=== PATIENT | male | born 1960 | race Caucasian/White ===

== ENCOUNTER 2017-11-07 14:51 | Inpatient (IN) | payer OTHER, SELFPAY ==
[~2017-11-07] VITALS: Ht 170.2 cm; Wt 50.0 kg
[~2017-11-07 14:51] MED LIST: HYDACE5 PO; SULTRIDS PO
[2017-11-07 15:37] LABS: Hemoglobin 15.6 g/dL (13.5-17.5); Mean Corpuscular HGB 29.9 pg (26.0-34.0); Mean Corpuscular HGB Conc 34.7 g/dL (31.5-36.5); Mean Corpuscular Volume 86 fL (80-100); Mean Platelet Volume 10.2 fL (9.1-12.4); Platelet Count 224 K/mm3 (150-400); RDW Coefficient Variation 14.8 % (11.7-14.2); RDW Standard Deviation 47.2 fL (35.1-46.3); Red Blood Cell Count 5.22 M/mm3 (4.30-5.90); White Blood Cell Count 13.65 K/mm3 (4.00-11.30)
[2017-11-07 15:55] LABS: Alanine Aminotransfer (ALT/SGP 9 U/L (12-78); Albumin, Blood 1.6 g/dL (3.4-5.0); Albumin/Globulin Ratio 0.3 (0.8-1.8); Alk Phos 80 U/L (50-136); Anion Gap 10 mmol/L (6-16); Aspartate Aminotrans (AST/SGOT 28 U/L (12-37); Blood Urea Nitrogen 43 mg/dL (8-24); Bun/Creatinine Ratio 54.6 (12.0-20.0); CO2, Blood 27 mmol/L (21-32); Calcium, Blood 8.7 mg/dL (8.5-10.1); Chloride, Blood 95 mmol/L (98-108); Creatinine, Blood 0.79 mg/dL (0.60-1.20); Globulin, Blood 5.6 g/dL (2.2-4.0); Glomerular Filtration Rate >60 (60-); Glucose, Blood 74 mg/dL (70-99); Potassium, Blood 3.7 mmol/L (3.5-5.5); Sodium, Blood 132 mmol/L (136-145); Total Protein, Blood 7.2 g/dL (6.4-8.2); Troponin I <0.015 ng/mL (0.000-0.040)
[2017-11-07 16:08] LABS: BAND PERCENT MAN 2 % (0-8); BASOPHILS PERCENT MAN 0 % (0-2); EOSINOPHILS PERCENT MAN 0 % (0-6); LYMPHOCYTES PERCENT MAN 3 % (21-46); METAMYELOCYTE ABSOLUTE MAN 0.27 K/mm3 (0.00-0.00); METAMYELOCYTE PERCENT MAN 2 % (0-0); MONOCYTES ABSOLUTE MAN 0.27 K/mm3 (0.16-1.47); MONOCYTES PERCENT MAN 2 % (4-13); NEUTROPHILS ABSOLUTE MAN 12.69 K/mm3 (1.96-9.15); SEG NEUTROPHILS PERCENT MAN 91 % (41-73); TOTAL CELLS COUNTED 100
[2017-11-08 06:09] LABS: BASOPHILS ABSOLUTE AUTO 0.01 K/mm3 (0.00-0.23); BASOPHILS PERCENT AUTO 0 % (0-2); EOSINOPHILS ABSOLUTE AUTO 0.01 K/mm3 (0.00-0.68); EOSINOPHILS PERCENT AUTO 0 % (0-6); Hematocrit 38.5 % (37.0-53.0); Hemoglobin 13.2 g/dL (13.5-17.5); IMMATURE GRAN ABSOLUTE AUTO 0.08 K/mm3 (0.00-0.10); IMMATURE GRAN PERCENT AUTO 1 % (0-1); LYMPHOCYTES ABSOLUTE AUTO 0.63 K/mm3 (0.84-5.20); LYMPHOCYTES PERCENT AUTO 7 % (21-46); MONOCYTES ABSOLUTE AUTO 0.24 K/mm3 (0.16-1.47); MONOCYTES PERCENT AUTO 3 % (4-13); Mean Corpuscular HGB 29.5 pg (26.0-34.0); Mean Corpuscular HGB Conc 34.3 g/dL (31.5-36.5); Mean Corpuscular Volume 86 fL (80-100); Mean Platelet Volume 10.7 fL (9.1-12.4); NEUTROPHILS ABSOLUTE AUTO 8.09 K/mm3 (1.96-9.15); NEUTROPHILS PERCENT AUTO 89 % (41-73); NRBC ABSOLUTE 0.02 K/mm3 (0.00-0.02); NRBC Auto 0.2 /100 WBC (0.0-0.2); Platelet Count 182 K/mm3 (150-400); RDW Coefficient Variation 14.9 % (11.7-14.2); RDW Standard Deviation 47.1 fL (35.1-46.3); Red Blood Cell Count 4.47 M/mm3 (4.30-5.90); White Blood Cell Count 9.06 K/mm3 (4.00-11.30)
[2017-11-08 06:21] LABS: Alanine Aminotransfer (ALT/SGP 9 U/L (12-78); Albumin, Blood 1.2 g/dL (3.4-5.0); Albumin/Globulin Ratio 0.3 (0.8-1.8); Alk Phos 76 U/L (50-136); Anion Gap 8 mmol/L (6-16); Aspartate Aminotrans (AST/SGOT 34 U/L (12-37); Bilirubin, Total 0.7 mg/dL (0.1-1.0); Blood Urea Nitrogen 29 mg/dL (8-24); Bun/Creatinine Ratio 43.2 (12.0-20.0); CO2, Blood 26 mmol/L (21-32); Chloride, Blood 100 mmol/L (98-108); Creatinine, Blood 0.67 mg/dL (0.60-1.20); Globulin, Blood 4.4 g/dL (2.2-4.0); Glomerular Filtration Rate >60 (60-); Glucose, Blood 94 mg/dL (70-99); Potassium, Blood 3.7 mmol/L (3.5-5.5); Sodium, Blood 134 mmol/L (136-145); Total Protein, Blood 5.6 g/dL (6.4-8.2)
[2017-11-09 04:25] LABS: Albumin, Blood 1.2 g/dL (3.4-5.0); Anion Gap 9 mmol/L (6-16); Blood Urea Nitrogen 22 mg/dL (8-24); Bun/Creatinine Ratio 36.1 (12.0-20.0); CO2, Blood 27 mmol/L (21-32); Calcium, Blood 7.9 mg/dL (8.5-10.1); Chloride, Blood 102 mmol/L (98-108); Creatinine, Blood 0.61 mg/dL (0.60-1.20); Glomerular Filtration Rate >60 (60-); Glucose, Blood 91 mg/dL (70-99); Magnesium, Blood 1.5 mg/dL (1.6-2.4); Phosphorus, Blood 3.7 mg/dL (2.5-4.9); Potassium, Blood 3.4 mmol/L (3.5-5.5); Sodium, Blood 138 mmol/L (136-145)
[2017-11-10 06:27] LABS: Anion Gap 4 mmol/L (6-16); Blood Urea Nitrogen 19 mg/dL (8-24); Bun/Creatinine Ratio 33.1 (12.0-20.0); CO2, Blood 30 mmol/L (21-32); Calcium, Blood 7.9 mg/dL (8.5-10.1); Chloride, Blood 104 mmol/L (98-108); Creatinine, Blood 0.57 mg/dL (0.60-1.20); Glomerular Filtration Rate >60 (60-); Glucose, Blood 89 mg/dL (70-99); Magnesium, Blood 1.6 mg/dL (1.6-2.4); Sodium, Blood 138 mmol/L (136-145)
[2017-11-11] MEDS ORDERED: ACET325 PO (10:43)
[2017-11-11] MEDS ORDERED: ASPI81CH PO (10:43)
[2017-11-11] MEDS ORDERED: AZIT500 PO (10:44)
[2017-11-11] MEDS ORDERED: CEPACOL SORE T1 EACH PO (10:44)
[2017-11-11] MEDS ORDERED: GUAI600T33 PO (10:45)
[2017-11-11] MEDS ORDERED: DULERA 200 MCG/13 GM INH (10:46)
[2017-11-11] MEDS ORDERED: CEFP200 PO (10:47)
[2017-11-11] MEDS ORDERED: ALBU90OI INH (10:47)
== END 2017-11-11 14:01 | disposition home or self-care (01) | DRG 871 ==
LOC: ER 14:51 → MEDS 17:24
PROVIDERS: Emergency Medicine; Family Medicine; Internal Medicine
DX: A41.9 Sepsis, unspecified organism (principal); J18.9 Pneumonia, unspecified organism; J44.0 Chronic obstructive pulmonary disease with (acute) lower respiratory infection; E88.09 Other disorders of plasma-protein metabolism, not elsewhere classified; H91.90 Unspecified hearing loss, unspecified ear; I48.0 Paroxysmal atrial fibrillation; F10.20 Alcohol dependence, uncomplicated; F17.200 Nicotine dependence, unspecified, uncomplicated; Z71.6 Tobacco abuse counseling
CPT/HCPCS: 36415; 71046; 71250; 80048; 80053; 80069; 83605; 83735; 84484; 85025; 87040; 87070; 87205; 93005; 93010; 93306; 94640; 94760; 94761; 96365; 99285; J0456; J1644; J2543; J3370; J3411; J3475; J7030; J7042; J7050

== ENCOUNTER 2017-12-01 12:07 | Emergency (ER) | payer OTHER, SELFPAY ==
[~2017-12-01] VITALS: Ht 160 cm; Wt 49.9 kg
[~2017-12-01 12:07] MED LIST changes: +ACET325 PO; +ALBU90OI INH; +ASPI81CH PO; +AZIT500 PO; +CEFP200 PO; +CEPACOL SORE T1 EACH PO; +DULERA 200 MCG/13 GM INH; +GUAI600T33 PO
[2017-12-01 12:47] LABS: BASOPHILS ABSOLUTE AUTO 0.12 K/mm3 (0.00-0.23); BASOPHILS PERCENT AUTO 2 % (0-2); EOSINOPHILS ABSOLUTE AUTO 0.13 K/mm3 (0.00-0.68); EOSINOPHILS PERCENT AUTO 2 % (0-6); Hematocrit 44.3 % (37.0-53.0); Hemoglobin 14.1 g/dL (13.5-17.5); IMMATURE GRAN ABSOLUTE AUTO 0.01 K/mm3 (0.00-0.10); IMMATURE GRAN PERCENT AUTO 0 % (0-1); LYMPHOCYTES PERCENT AUTO 36 % (21-46); MONOCYTES PERCENT AUTO 15 % (4-13); Mean Corpuscular HGB 28.8 pg (26.0-34.0); Mean Corpuscular HGB Conc 31.8 g/dL (31.5-36.5); Mean Corpuscular Volume 90 fL (80-100); Mean Platelet Volume 9.6 fL (9.1-12.4); NEUTROPHILS ABSOLUTE AUTO 2.63 K/mm3 (1.96-9.15); NEUTROPHILS PERCENT AUTO 45 % (41-73); Platelet Count 336 K/mm3 (150-400); RDW Standard Deviation 53.7 fL (35.1-46.3); White Blood Cell Count 5.89 K/mm3 (4.00-11.30)
[2017-12-01 13:07] LABS: Alanine Aminotransfer (ALT/SGP 18 U/L (12-78); Albumin/Globulin Ratio 0.6 (0.8-1.8); Alk Phos 104 U/L (50-136); Anion Gap 6 mmol/L (6-16); Aspartate Aminotrans (AST/SGOT 26 U/L (12-37); Bilirubin, Total 0.2 mg/dL (0.1-1.0); Blood Urea Nitrogen 8 mg/dL (8-24); Bun/Creatinine Ratio 14.1 (12.0-20.0); CO2, Blood 29 mmol/L (21-32); Calcium, Blood 8.7 mg/dL (8.5-10.1); Chloride, Blood 103 mmol/L (98-108); Creatinine, Blood 0.57 mg/dL (0.60-1.20); Globulin, Blood 5.1 g/dL (2.2-4.0); Glomerular Filtration Rate >60 (60-); Glucose, Blood 91 mg/dL (70-99); Potassium, Blood 4.8 mmol/L (3.5-5.5); Sodium, Blood 138 mmol/L (136-145); Total Protein, Blood 8.1 g/dL (6.4-8.2); Troponin I <0.015 ng/mL (0.000-0.040)
[2017-12-01] MEDS ORDERED: Vibramycin100 MG PO (16:01)
== END 2017-12-01 17:15 | disposition home or self-care (01) ==
LOC: ER 12:07
PROVIDERS: Emergency Medicine
DX: J18.9 Pneumonia, unspecified organism (principal); Z79.2 Long term (current) use of antibiotics; J44.9 Chronic obstructive pulmonary disease, unspecified; F17.200 Nicotine dependence, unspecified, uncomplicated
CPT/HCPCS: 36415; 71046; 80053; 84484; 85025; 93005; 93010; 96361; 96374; 99283; J0696; J7030

== ENCOUNTER 2023-04-17 15:56 | Inpatient (IN) | payer OTHER ==
[~2023-04-17] VITALS: Ht 177.8 cm; Wt 54.7 kg
[~2023-04-17 15:56] MED LIST changes: +Vibramycin100 MG PO
[2023-04-17 16:56] LABS: BASOPHILS ABSOLUTE AUTO 0.07 K/mm3 (0.00-0.23); BASOPHILS PERCENT AUTO 1 % (0-2); EOSINOPHILS ABSOLUTE AUTO 0.01 K/mm3 (0.00-0.68); EOSINOPHILS PERCENT AUTO 0 % (0-6); Hematocrit 46.8 % (37.0-53.0); Hemoglobin 14.3 g/dL (13.5-17.5); IMMATURE GRAN ABSOLUTE AUTO 0.05 K/mm3 (0.00-0.10); IMMATURE GRAN PERCENT AUTO 0 % (0-1); LYMPHOCYTES ABSOLUTE AUTO 0.81 K/mm3 (0.84-5.20); LYMPHOCYTES PERCENT AUTO 7 % (21-46); MONOCYTES ABSOLUTE AUTO 1.45 K/mm3 (0.16-1.47); MONOCYTES PERCENT AUTO 12 % (4-13); Mean Corpuscular HGB Conc 30.6 g/dL (31.5-36.5); Mean Corpuscular Volume 85 fL (80-100); Mean Platelet Volume 11.1 fL (9.1-12.4); NEUTROPHILS ABSOLUTE AUTO 9.58 K/mm3 (1.96-9.15); NEUTROPHILS PERCENT AUTO 80 % (41-73); NRBC ABSOLUTE 0.04 K/mm3 (0.00-0.02); NRBC Auto 0.3 /100 WBC (0.0-0.2); Platelet Count 212 K/mm3 (150-400); RDW Coefficient Variation 16.1 % (11.7-14.2); RDW Standard Deviation 50.1 fL (35.1-46.3); Red Blood Cell Count 5.51 M/mm3 (4.30-5.90); White Blood Cell Count 11.97 K/mm3 (4.00-11.30)
[2023-04-17 17:22] LABS: Albumin, Blood 2.3 g/dL (3.4-5.0); Albumin/Globulin Ratio 0.5 (0.8-1.8); Bilirubin, Total 0.8 mg/dL (0.1-1.0); Bun/Creatinine Ratio 21.7 (12.0-20.0); Calcium, Blood 8.5 mg/dL (8.5-10.1); Creatinine, Blood 0.78 mg/dL (0.60-1.20); Globulin, Blood 4.8 g/dL (2.2-4.0); Potassium, Blood 4.5 mmol/L (3.5-5.5); Total Protein, Blood 7.1 g/dL (6.4-8.2)
[2023-04-17 21:21] VITALS: BP 129/80
[2023-04-18 03:52] VITALS: BP 108/66
[2023-04-18 05:25] LABS: BASOPHILS ABSOLUTE AUTO 0.09 K/mm3 (0.00-0.23); BASOPHILS PERCENT AUTO 1 % (0-2); EOSINOPHILS ABSOLUTE AUTO 0.07 K/mm3 (0.00-0.68); EOSINOPHILS PERCENT AUTO 1 % (0-6); Hematocrit 43.6 % (37.0-53.0); Hemoglobin 13.6 g/dL (13.5-17.5); IMMATURE GRAN ABSOLUTE AUTO 0.01 K/mm3 (0.00-0.10); IMMATURE GRAN PERCENT AUTO 0 % (0-1); LYMPHOCYTES ABSOLUTE AUTO 0.95 K/mm3 (0.84-5.20); LYMPHOCYTES PERCENT AUTO 12 % (21-46); MONOCYTES ABSOLUTE AUTO 1.36 K/mm3 (0.16-1.47); MONOCYTES PERCENT AUTO 18 % (4-13); Mean Corpuscular HGB 26.1 pg (26.0-34.0); Mean Corpuscular HGB Conc 31.2 g/dL (31.5-36.5); Mean Corpuscular Volume 84 fL (80-100); Mean Platelet Volume 10.7 fL (9.1-12.4); NEUTROPHILS ABSOLUTE AUTO 5.22 K/mm3 (1.96-9.15); NEUTROPHILS PERCENT AUTO 68 % (41-73); Platelet Count 171 K/mm3 (150-400); RDW Coefficient Variation 16.2 % (11.7-14.2); RDW Standard Deviation 49.1 fL (35.1-46.3); Red Blood Cell Count 5.21 M/mm3 (4.30-5.90)
[2023-04-18 05:58] LABS: Anion Gap 7 mmol/L (6-16); Blood Urea Nitrogen 15 mg/dL (8-24); Bun/Creatinine Ratio 17.4 (12.0-20.0); CHOL/HDL RATIO 3.4; CO2, Blood 31 mmol/L (21-32); Calcium, Blood 8.5 mg/dL (8.5-10.1); Chloride, Blood 104 mmol/L (98-108); Cholesterol 88 mg/dL (50-200); Creatinine, Blood 0.86 mg/dL (0.60-1.20); Glomerular Filtration Rate 98 (60-); Glucose, Blood 81 mg/dL (70-99); HDL Cholesterol 26 mg/dL (>39); Low Density Lipoprotein Chol 51 mg/dL (0-110); Potassium, Blood 4.1 mmol/L (3.5-5.5); Sodium, Blood 142 mmol/L (136-145); Triglycerides 55 mg/dL (30-160); Very Low Density Lipoprot Chol 11 mg/dL (6-32)
--- NOTE | 2023-04-18 06:18 | NUR ---
ADMITTED LAST NIGHT AO, SBA WITH WEAK GAIT. PLEASANT, DROWSY BUT AROUSABLE. PAINFUL BLE WHEN COMPRESSION STOCKINGS PLACED. COARSE LUNG SOUNDS ON R SIDE. NO REQUESTS FOR PRN MEDS. VSS ON 4L NC. SKIN CHECK WITH RM LECHUGA, BLE IS RED AND EDEMATOUS 2-3+, SCAR ON L UPPER BACK FROM LOBECTOMY, R FOOT CELLULITIS, PROTRUDING RECTUM. SLEPT MOST OF SHIFT. USES URINAL INDEPENDENT. TELE PLACED ST IN LOW 100'S.
[2023-04-18 07:25] VITALS: BP 119/89
[2023-04-18 16:07] VITALS: BP 103/70
--- NOTE | 2023-04-18 16:34 | NUR ---
SHIFT SUMMARY NO ACUTE CHANGES NOTED DURING SHIFT. PT ALERT AND ORIENTED, CALLS APPROPRIATELY. PT REMAINS ON 4L NC. IV LASIX CONTINEUD. NO C/O PAIN AT THIS TIME. WILL CONTINUE TO MONITOR. CALL LIGHT WITHIN REACH.
[2023-04-18 19:13] VITALS: BP 106/76
[2023-04-19 04:52] VITALS: BP 125/91
--- NOTE | 2023-04-19 05:13 | NUR ---
SUMMARY: PT A/OX4, IS INDEPENDENT IN ROOM AND SPECIFIES NEEDS. PO KEFLEX RECEIVED FOR RLE CELLULITIS. TRACE BLE EDEMA IS IMPROVING W/LASIX DIURESIS AND DEBRA HOSE ARE INTACT. HE'S NSR-S.TACH AT 90'S-100'S BPM ON TELEMETRY. PT REMAINS ON 4L O2 VIA NC W/SPO2 WNL BUT DOES STILL BECOME SOB W/EXERTION. LS COARSE W/WHEEZES AND RT PROVIDED NEBS FOR TOLERABLE RELIEF. OCCASSIONAL MOIST PRODUCTIVE COUGH NOTED AND PT RECEIVING MUCINEX PER EMAR. NO ACUTE CHANGES, VSS/AFEBRILE. WCTM AND REPORT TO DAY RN.
[2023-04-19 05:33] LABS: BASOPHILS ABSOLUTE AUTO 0.09 K/mm3 (0.00-0.23); BASOPHILS PERCENT AUTO 1 % (0-2); EOSINOPHILS ABSOLUTE AUTO 0.11 K/mm3 (0.00-0.68); EOSINOPHILS PERCENT AUTO 1 % (0-6); Hemoglobin 15.5 g/dL (13.5-17.5); IMMATURE GRAN ABSOLUTE AUTO 0.02 K/mm3 (0.00-0.10); IMMATURE GRAN PERCENT AUTO 0 % (0-1); LYMPHOCYTES ABSOLUTE AUTO 1.22 K/mm3 (0.84-5.20); LYMPHOCYTES PERCENT AUTO 14 % (21-46); MONOCYTES ABSOLUTE AUTO 0.93 K/mm3 (0.16-1.47); MONOCYTES PERCENT AUTO 11 % (4-13); Mean Corpuscular HGB 26.1 pg (26.0-34.0); Mean Corpuscular HGB Conc 30.4 g/dL (31.5-36.5); Mean Corpuscular Volume 86 fL (80-100); Mean Platelet Volume 11.1 fL (9.1-12.4); NEUTROPHILS ABSOLUTE AUTO 6.09 K/mm3 (1.96-9.15); NEUTROPHILS PERCENT AUTO 72 % (41-73); Platelet Count 197 K/mm3 (150-400); RDW Coefficient Variation 17.2 % (11.7-14.2); RDW Standard Deviation 51.8 fL (35.1-46.3); Red Blood Cell Count 5.93 M/mm3 (4.30-5.90); White Blood Cell Count 8.46 K/mm3 (4.00-11.30)
[2023-04-19 05:58] LABS: Bun/Creatinine Ratio 23.8 (12.0-20.0); Calcium, Blood 8.5 mg/dL (8.5-10.1); Creatinine, Blood 0.92 mg/dL (0.60-1.20); Potassium, Blood 4.3 mmol/L (3.5-5.5)
[2023-04-19 07:19] VITALS: BP 127/92
--- NOTE | 2023-04-19 13:14 | NUR ---
Spiritual Care Consult. Pt. is awake in his bed, doing breathing treatments when he welcomes my visit. Pt. displays evidence of being alert yet with some mild confusion. Pt. remains engaged with his breathing treatment during the visit. Pt. verbalizes that he did not wnat to see a spray unit feeder at this time, but welcomed this professional services specialist to give him a blessing. Prayed with Pt. Pt. verbalized gratitude for the spiritual care visit. Recommend spiritual care staff refrain from bringing in Harjinder Lopez unless Pt. faces EOL.
--- NOTE | 2023-04-19 14:06 | NUR ---
1330- RN NOTIFIED DR. BARREOT OF PT'S 8 BEAT RUN OF V-TACH. AWARE. NO NEW ORDERS.
[2023-04-19 15:01] VITALS: BP 102/69
--- NOTE | 2023-04-19 18:20 | NUR ---
SUMMARY- PT HAD 8 BEAT RUN OF V TACH THIS [id number] AWARE. NO OTHER ACUTE EVENTS. PT SOB W/EXCERTION. X1 ASSIST. AAOX3.
[2023-04-19 19:34] VITALS: BP 98/77
[2023-04-20 03:15] VITALS: BP 116/87
[2023-04-20 05:15] LABS: BASOPHILS ABSOLUTE AUTO 0.08 K/mm3 (0.00-0.23); BASOPHILS PERCENT AUTO 1 % (0-2); EOSINOPHILS ABSOLUTE AUTO 0.17 K/mm3 (0.00-0.68); EOSINOPHILS PERCENT AUTO 2 % (0-6); Hematocrit 49.3 % (37.0-53.0); Hemoglobin 15.2 g/dL (13.5-17.5); IMMATURE GRAN ABSOLUTE AUTO 0.02 K/mm3 (0.00-0.10); IMMATURE GRAN PERCENT AUTO 0 % (0-1); LYMPHOCYTES ABSOLUTE AUTO 1.18 K/mm3 (0.84-5.20); LYMPHOCYTES PERCENT AUTO 13 % (21-46); MONOCYTES ABSOLUTE AUTO 1.21 K/mm3 (0.16-1.47); MONOCYTES PERCENT AUTO 13 % (4-13); Mean Corpuscular HGB 26.2 pg (26.0-34.0); Mean Corpuscular HGB Conc 30.8 g/dL (31.5-36.5); Mean Corpuscular Volume 85 fL (80-100); Mean Platelet Volume 10.6 fL (9.1-12.4); NEUTROPHILS ABSOLUTE AUTO 6.53 K/mm3 (1.96-9.15); NEUTROPHILS PERCENT AUTO 71 % (41-73); Platelet Count 194 K/mm3 (150-400); RDW Coefficient Variation 17.5 % (11.7-14.2); RDW Standard Deviation 50.4 fL (35.1-46.3); Red Blood Cell Count 5.81 M/mm3 (4.30-5.90); White Blood Cell Count 9.19 K/mm3 (4.00-11.30)
[2023-04-20 05:54] LABS: Bun/Creatinine Ratio 26.9 (12.0-20.0); Calcium, Blood 8.4 mg/dL (8.5-10.1); Creatinine, Blood 0.93 mg/dL (0.60-1.20); Magnesium, Blood 1.9 mg/dL (1.6-2.4); Potassium, Blood 4.4 mmol/L (3.5-5.5)
--- NOTE | 2023-04-20 06:31 | NUR ---
SHIFT SUMMARY PT SITTING UP IN BED DURING BEDSIDE ROUNDS, PT ON 4L OF O2-PT SPEAKS IN A WHISPER - PT HAS WET WEAK SOMETIMES PRODUCTIVE COUGHT- PT USES URINAL WITHOUT PROBLEMS, PT SLEPT T/O NIGHT WITHOUT C/O SOB- BED LOW POSITION, CALL LIGHT WITHIN REACH
[2023-04-20 07:23] VITALS: BP 124/94
--- NOTE | 2023-04-20 15:15 | NUR ---
PATIENT CARE TRANSFERRED, VIVIANE FORRESTER RN REPORTED TO THIS RN MARIA EUGENIA, NO IMMEDIATE NEEDS, NO SIGNS OF DISTRESS, SNORING, CALL LIGHT WITH IN REACH
--- NOTE | 2023-04-20 15:34 | NUR ---
REPORT GIVEN TO MARIA TERESA CHEN TO RESUME CARE OF THIS PATIENT [id number]
[2023-04-20 16:18] VITALS: BP 112/75
--- NOTE | 2023-04-20 18:29 | NUR ---
alert and oriented, makes needs known, easily wakes, home possible tomorrow, poor perfusion, fingers are clubbed, hard to get a correct sat reading, no distress, resting, call light with in reach
[2023-04-20 20:18] VITALS: BP 109/78
[2023-04-21 04:16] VITALS: BP 136/88
--- NOTE | 2023-04-21 06:54 | NUR ---
SHIFT SUMMARY PT SITTING UP IN BED DURING BEDSIDE ROUNDS- RT IN PERFORMING FLUTTER THERAPY ON PT- PT TOLERATED WELL- PT REFUSED STOOL SOFTNER WITH HS MEDS D/T INCONTIENT EPISODE OF BM ON 299 PT AWAKE AND REQUESTED SOMETHING TO HELP RELAX HIM AND HELP HIM SLEEP- PT REPORTS FALLING TO SLEEP FOR A FEW MINUTES AT A TIME- CALL TO DR. MCKEON- NEW ORDER FOR 1 X DOSE OF ATIVAN 0.5MG PO- GIVEN- PT RESTING WITH EYES CLOSED WITH FOLLOW UP ROUNDING- BED LOW POSITION, CALL LIGHT WITHIN REACH
[2023-04-21 07:39] VITALS: BP 134/97
[2023-04-21] MEDS ORDERED: AZIT500 PO (14:09)
[2023-04-21] MEDS ORDERED: METO25ER PO (14:10)
[2023-04-21] MEDS ORDERED: GUAI600T33 PO (14:10)
[2023-04-21] MEDS ORDERED: Nicoderm Cq1 EAC1 TOP (14:10)
[2023-04-21] MEDS ORDERED: IPRAT-ALBUT 0.5-3 ML INH (14:10)
[2023-04-21] MEDS ORDERED: LOSA25 PO (14:10)
--- NOTE | 2023-04-21 14:10 | NUR ---
DISCHARGE NOTE PT DISCHARGED TO HOME, TRANSPORTED VIA [facility]. THE IV WAS REMOVED. OXYGEN DELIVERED AND GIVEN TO THE PT FOR TRANSPORT. MEDICATIONS FAXED TO THE PHARMACY OF HIS CHOICE.
[2023-04-21] MEDS ORDERED: POTA10T PO (14:11)
[2023-04-21] MEDS ORDERED: TORSE20 PO (14:11)
== END 2023-04-21 14:09 | disposition home or self-care (01) | DRG 291 ==
LOC: ER 15:56 → MEDS 20:45
PROVIDERS: Emergency Medicine; Internal Medicine; ADMIT Hospitalist
DX: I50.41 Acute combined systolic (congestive) and diastolic (congestive) heart failure (principal); E43 Unspecified severe protein-calorie malnutrition; J96.01 Acute respiratory failure with hypoxia; J44.0 Chronic obstructive pulmonary disease with (acute) lower respiratory infection; L03.116 Cellulitis of left lower limb; Z68.1 Body mass index [BMI] 19.9 or less, adult; L03.115 Cellulitis of right lower limb; J44.1 Chronic obstructive pulmonary disease with (acute) exacerbation; J96.12 Chronic respiratory failure with hypercapnia; J20.9 Acute bronchitis, unspecified; R00.0 Tachycardia, unspecified; I48.0 Paroxysmal atrial fibrillation; F10.10 Alcohol abuse, uncomplicated; F17.200 Nicotine dependence, unspecified, uncomplicated; K40.90 Unilateral inguinal hernia, without obstruction or gangrene, not specified as recurrent; Z99.81 Dependence on supplemental oxygen; B96.89 Other specified bacterial agents as the cause of diseases classified elsewhere; I25.2 Old myocardial infarction; Z90.2 Acquired absence of lung [part of]
CPT/HCPCS: 36415; 71045; 71046; 80048; 80053; 80061; 83735; 83880; 84145; 84484; 85025; 87070; 87205; 93005; 93010; 94640; 94664; 94667; 94668; 94760; 94761; 96374; 99285-25; A9270; C8929; J1650; J1940; J3475; Q9957

== ENCOUNTER 2023-06-23 18:05 | Inpatient (IN) | payer OTHER ==
[~2023-06-23] VITALS: Ht 167.6 cm; Wt 61.2 kg
[~2023-06-23 18:05] MED LIST changes: -FURO40 PO; -METO50ER PO; -SOAANZ20 M1 PO
[2023-06-23] MEDS ORDERED: METO50ER PO (23:14)
[2023-06-23] MEDS ORDERED: IPRAT-ALBUT 0.5-3 ML INH (23:14)
[2023-06-23] MEDS ORDERED: LOSA25 PO (23:14)
[2023-06-23] MEDS ORDERED: POTA10T PO (23:15)
[2023-06-23] MEDS ORDERED: SOAANZ20 M1 PO (23:15)
[2023-06-23 23:19] VITALS: BP 111/79
[2023-06-24 01:53] VITALS: BP 101/69
[2023-06-24 05:44] LABS: Bun/Creatinine Ratio 14.8 (12.0-20.0); Calcium, Blood 8.3 mg/dL (8.5-10.1); Creatinine, Blood 0.95 mg/dL (0.60-1.20); Potassium, Blood 3.8 mmol/L (3.5-5.5)
--- NOTE | 2023-06-24 05:56 | NUR ---
pT ADMITTED A/O FLAT AFFECT STATES BREATHING IS MUCH BETTER NO C/O PAIN NO DISTRESS, SKIN CHECK WNL WITH SOME EDEMA TO THE LOWER EXT. PT NOW SLEEPING RESTING COMFORTABLY .
[2023-06-24 07:49] VITALS: BP 118/93
[2023-06-24 13:05] VITALS: BP 98/60
--- NOTE | 2023-06-24 13:10 | NUR ---
PATIENT HAS ORDER TO ADMINISTER OT DOSE OF PO 25 MG METOPROLOL ER. THIS RN CHECK PATIENT VITALS; BP OF 98/60 c HR OF [address] POWERS TO REPORT PATIENT VITALS. PER DR. POWERS TO GO AHEAD GIVE THE METOPROLOL DOSE NOW AND TO RECHECK PATIENT VITALS PRIOR TO ADMINISTERING THE ALDACTONE DOSE AT 1300, IF SBP LESS THAN 100 TO HOLD THE DOSE.
[2023-06-24 13:54] VITALS: BP 95/63
[2023-06-24 15:41] VITALS: BP 111/80
--- NOTE | 2023-06-24 18:17 | NUR ---
SHIFT SUMMARY: PATIENT A&OX4. QUIET, CALM, PLEASANT AND COOPERATIVE c CARE. DENIES CP/PRESSURE, N/V, SOB AND GENERALIZED PAIN. ON TELE ST HR IN THE LOW 100'S BPM. PLUS 2 EDEMA TO BLE'S. LUNGS COARSE, RONCHI, AND CRACKLES T/O TO AUSCULTATION. PATIENT HAS HARSH NON-PRODUCTIVE COUGH. ON O2 2L VIA NC c SPO2 ABOVE 96%. BP SOFT BUT STABLE. RECEIVED SCHEDULED MEDS PER EMAR. PATIENT IS EATING AND DRINKING WELL. USES URINAL AT BEDSIDE INDEPENDENTLY. CALL LIGHT IN REACH. PATIENT EDUCATED ON NON SMOKING POLICY, RISK OF INJURY AND IGNITION SOURCES WHEN O2 IS IN USE. PATIENT DENIES SMOKING AND VERBALIZED UNDERSTANDING.
[2023-06-24 19:43] VITALS: BP 103/60
[2023-06-25 03:42] VITALS: BP 111/71
--- NOTE | 2023-06-25 05:48 | NUR ---
SHIFT SUMMARY UNEVENTFUL NIGHT PT SLEPT ALL EVENING OCCATIONALLY WAKING TO COUGH, OTHERWISE NO CHANGE IN PT CONDITION.
[2023-06-25 07:51] VITALS: BP 99/75
[2023-06-25 10:34] LABS: Bun/Creatinine Ratio 21.3 (12.0-20.0); Calcium, Blood 8.6 mg/dL (8.5-10.1); Creatinine, Blood 0.84 mg/dL (0.60-1.20); Potassium, Blood 3.9 mmol/L (3.5-5.5)
[2023-06-25] MEDS ORDERED: FURO40 PO (12:35)
[2023-06-25] MEDS ORDERED: ASPI81CH PO (12:35)
--- NOTE | 2023-06-25 14:47 | NUR ---
NOTES/DISCHARGE SUMMARY: PATIENT A&OX4. CALM, PLEASANT AND COOPERATIVE c CARE. USES CALL LIGHT APPROPRIATELY AND ABLE TO MAKE NEEDS KNOWN. DENIES CP/PRESSURE, N/V, SOB AND GENERALIZED PAIN. ON TELE, SR HR IN THE 90'S BPM. ON 2L OF O2 VIA NC c SPO2 ABOVE 95%. LUNGS STILL COARSE, CRACKLES AND RONCHI T/O TO AUSCULTATION. EDEMA TO BLE'S IS IMPROVING. RECEIVED SCHEDULED MEDS PER EMAR. VITAL SIGNS REVIEWED. IV TO RAC DC'D. PATIENT EDUCATED ON NON SMOKING POLICY, RISK OF INJURY AND IGNITION SOURCES WHEN O2 IS IN USE. PATIENT DENIES SMOKING AND VERBALIZED UNDERSTANDING. PATIENT DISCHARGE HOME. DISCHARGE INSTRUCTIONS PACKET GIVEN TO PATIENT. EDUCATE PATIENT REGARDING ADMITTING DX OF ACUTE HF, S/S, TX AND NEW PRESCRIBED MEDICATIONS TO HOME. PATIENT VERBALIZED UNDERSTANDING AND NO FURTHER QUESTIONS. RX WAS FAXED TO PATIENT PREFERRED PHARMACY ([facility]). ALL PATIENT PERSONAL BELONGINGS WERE SENT HOME c THE PATIENT. PATIENT LEFT THE ROOM AT AROUND 1410. THIS CRIMINALIST TECHNICIAN PATIENT VIA WHEELCHAIR TO PATIENT ENTRANCE.
== END 2023-06-25 14:11 | disposition home or self-care (01) | DRG 291 ==
LOC: ER 18:05 → MEDS 18:06
PROVIDERS: Internal Medicine; Nurse Practitioner Acute Care; ADMIT Internal Medicine
DX: I11.0 Hypertensive heart disease with heart failure (principal); I50.21 Acute systolic (congestive) heart failure; J96.11 Chronic respiratory failure with hypoxia; I24.8 Other forms of acute ischemic heart disease; D64.9 Anemia, unspecified; J44.9 Chronic obstructive pulmonary disease, unspecified; F10.20 Alcohol dependence, uncomplicated; F17.210 Nicotine dependence, cigarettes, uncomplicated; Z71.6 Tobacco abuse counseling; Z71.41 Alcohol abuse counseling and surveillance of alcoholic
CPT/HCPCS: 36415; 71260; 80048; 84484; 93005; 93010; 94640; 94664; 94762; 96372; 96374-59; 96376; 99285-25; A9270; G0378; J1650; J1940; J7030; Q9967

== ENCOUNTER → 2023-06-23 | Outpatient (CLI) | payer OTHER ==
[~2023-06-23] MED LIST changes: +FURO40 PO; +IPRAT-ALBUT 0.5-3 ML INH; +LOSA25 PO; +METO25ER PO; +METO50ER PO; +Nicoderm Cq1 EAC1 TOP; +POTA10T PO; +SOAANZ20 M1 PO; +TORSE20 PO
[2023-06-23 17:18] LABS: BASOPHILS ABSOLUTE AUTO 0.07 K/mm3 (0.00-0.23); BASOPHILS PERCENT AUTO 1 % (0-2); EOSINOPHILS ABSOLUTE AUTO 0.11 K/mm3 (0.00-0.68); EOSINOPHILS PERCENT AUTO 2 % (0-6); Hematocrit 41.6 % (37.0-53.0); Hemoglobin 12.8 g/dL (13.5-17.5); IMMATURE GRAN ABSOLUTE AUTO 0.01 K/mm3 (0.00-0.10); IMMATURE GRAN PERCENT AUTO 0 % (0-1); LYMPHOCYTES ABSOLUTE AUTO 0.81 K/mm3 (0.84-5.20); LYMPHOCYTES PERCENT AUTO 12 % (21-46); MONOCYTES ABSOLUTE AUTO 0.79 K/mm3 (0.16-1.47); MONOCYTES PERCENT AUTO 12 % (4-13); Mean Corpuscular HGB 26.7 pg (26.0-34.0); Mean Corpuscular HGB Conc 30.8 g/dL (31.5-36.5); Mean Corpuscular Volume 87 fL (80-100); Mean Platelet Volume 9.2 fL (9.1-12.4); NEUTROPHILS ABSOLUTE AUTO 4.77 K/mm3 (1.96-9.15); NEUTROPHILS PERCENT AUTO 73 % (41-73); Platelet Count 180 K/mm3 (150-400); RDW Coefficient Variation 20.8 % (11.7-14.2); RDW Standard Deviation 65.2 fL (35.1-46.3); White Blood Cell Count 6.56 K/mm3 (4.00-11.30)
[2023-06-23 17:35] LABS: Albumin, Blood 2.9 g/dL (3.4-5.0); Albumin/Globulin Ratio 0.7 (0.8-1.8); Bilirubin, Total 0.8 mg/dL (0.1-1.0); Bun/Creatinine Ratio 14.6 (12.0-20.0); Calcium, Blood 8.8 mg/dL (8.5-10.1); Creatinine, Blood 0.89 mg/dL (0.60-1.20); Globulin, Blood 4.3 g/dL (2.2-4.0); Potassium, Blood 3.8 mmol/L (3.5-5.5); Total Protein, Blood 7.2 g/dL (6.4-8.2)
== END | disposition home or self-care (01) ==
LOC: LAB 17:13 → LAB SHORT 17:13
PROVIDERS: Physician Assistant
DX: R60.0 Localized edema (principal)
CPT/HCPCS: 80053; 83880; 84484; 85025; 85379

== ENCOUNTER 2023-09-06 11:43 | Inpatient (IN) | payer OTHER ==
[~2023-09-06] VITALS: Ht 165.1 cm; Wt 66.4 kg
[~2023-09-06 11:43] MED LIST changes: +FURO40 PO; +METO50ER PO; +SOAANZ20 M1 PO
[2023-09-06 12:19] LABS: BASOPHILS ABSOLUTE AUTO 0.08 K/mm3 (0.00-0.23); BASOPHILS PERCENT AUTO 1 % (0-2); EOSINOPHILS ABSOLUTE AUTO 0.01 K/mm3 (0.00-0.68); EOSINOPHILS PERCENT AUTO 0 % (0-6); Hemoglobin 13.4 g/dL (13.5-17.5); IMMATURE GRAN ABSOLUTE AUTO 0.01 K/mm3 (0.00-0.10); IMMATURE GRAN PERCENT AUTO 0 % (0-1); LYMPHOCYTES ABSOLUTE AUTO 0.55 K/mm3 (0.84-5.20); LYMPHOCYTES PERCENT AUTO 10 % (21-46); MONOCYTES PERCENT AUTO 16 % (4-13); Mean Corpuscular HGB 27.7 pg (26.0-34.0); Mean Corpuscular HGB Conc 30.5 g/dL (31.5-36.5); Mean Corpuscular Volume 91 fL (80-100); Mean Platelet Volume 10.4 fL (9.1-12.4); NEUTROPHILS ABSOLUTE AUTO 4.16 K/mm3 (1.96-9.15); NEUTROPHILS PERCENT AUTO 73 % (41-73); Platelet Count 152 K/mm3 (150-400); RDW Coefficient Variation 18.6 % (11.7-14.2); RDW Standard Deviation 60.9 fL (35.1-46.3); Red Blood Cell Count 4.83 M/mm3 (4.30-5.90); White Blood Cell Count 5.71 K/mm3 (4.00-11.30)
[2023-09-06 12:48] LABS: Albumin, Blood 3.2 g/dL (3.4-5.0); Albumin/Globulin Ratio 0.7 (0.8-1.8); Bilirubin, Total 1.7 mg/dL (0.1-1.0); Bun/Creatinine Ratio 20.3 (12.0-20.0); Creatinine, Blood 0.84 mg/dL (0.60-1.20); Globulin, Blood 4.5 g/dL (2.2-4.0); Potassium, Blood 4.4 mmol/L (3.5-5.5); Total Protein, Blood 7.7 g/dL (6.4-8.2)
[2023-09-06 16:06] VITALS: BP 109/84
--- NOTE | 2023-09-06 18:19 | NUR ---
SHIFT SUMMARY PT AOX4, SBA TO THE BSC. HE IS A NEW ADMIT THIS SHIFT, MEDS RECONCILED AND ADMIT DONE. HE C/O FEET PAIN, MEDICATED PER THE EMAR. URINAL AT THE BEDSIDE. PT'S CLOTHES WERE SOILED AND PLACED IN A BIOHAZARD BAG IN THE ROOM. PT HAS A GOOD APPETITE. CALL LIGHT WITHIN REACH, BED IN THE LOWEST POSITION. WILL REPORT TO ONCOMING NURSE. HE IS ON A 1500 ML FLUID RESTRICTION.
[2023-09-06 19:07] VITALS: BP 110/82
[2023-09-07 03:47] VITALS: BP 105/83
[2023-09-07 05:03] LABS: BASOPHILS ABSOLUTE AUTO 0.01 K/mm3 (0.00-0.23); BASOPHILS PERCENT AUTO 0 % (0-2); EOSINOPHILS PERCENT AUTO 0 % (0-6); Hematocrit 43.2 % (37.0-53.0); Hemoglobin 13.4 g/dL (13.5-17.5); IMMATURE GRAN ABSOLUTE AUTO 0.01 K/mm3 (0.00-0.10); IMMATURE GRAN PERCENT AUTO 0 % (0-1); LYMPHOCYTES ABSOLUTE AUTO 0.34 K/mm3 (0.84-5.20); LYMPHOCYTES PERCENT AUTO 11 % (21-46); MONOCYTES ABSOLUTE AUTO 0.46 K/mm3 (0.16-1.47); MONOCYTES PERCENT AUTO 14 % (4-13); Mean Corpuscular HGB 27.5 pg (26.0-34.0); Mean Corpuscular Volume 89 fL (80-100); NEUTROPHILS ABSOLUTE AUTO 2.37 K/mm3 (1.96-9.15); NEUTROPHILS PERCENT AUTO 74 % (41-73); Platelet Count 156 K/mm3 (150-400); RDW Coefficient Variation 18.6 % (11.7-14.2); RDW Standard Deviation 58.5 fL (35.1-46.3); Red Blood Cell Count 4.88 M/mm3 (4.30-5.90); White Blood Cell Count 3.19 K/mm3 (4.00-11.30)
[2023-09-07 05:39] LABS: Bun/Creatinine Ratio 23.6 (12.0-20.0); Calcium, Blood 8.8 mg/dL (8.5-10.1); Creatinine, Blood 1.06 mg/dL (0.60-1.20); Magnesium, Blood 1.8 mg/dL (1.6-2.4); Potassium, Blood 4.9 mmol/L (3.5-5.5)
--- NOTE | 2023-09-07 06:22 | NUR ---
SHIFT SUMMARY A/OX4. 2L NC. SINUS TACHY ON TELE COURSE, EXPIRATORY WHEEZES. WEAK NONPRODUCTIVE COUGH. EDEMEATOUS TO BILATERAL LOWER EXTREMITIES. WAS INCONTINENT WHEN BROUGHT UP FROM ED YESTRDAY. CONDOM CATH ON TO MONITOR OUTPUT. FLUID RESTRICTION OF 1500 ML. DRANK ONE 16 OZ CUP FOR THIS 12 HOUR NOISE TESTER. PT IS QUET, SOFT SPOKEN AND WITHDRAWN. SHIFT UNREMARKABLE. DOES NOT CALL OFTEN TO MAKE NEEDS KNOWN. CALL LIGHT IN REACH. NICOTINE PATCH TO RIGHT ARM.
[2023-09-07 07:23] VITALS: BP 104/80
[2023-09-07 15:51] VITALS: BP 102/72
[2023-09-07 19:37] VITALS: BP 115/82
--- NOTE | 2023-09-08 02:05 | NUR ---
09/07/232219 PT LYING IN BED, DENIES ANY DISOMFORT AT THIS TIME. TELE NSR W/OCC PVC'S AT 109. CONDOM CATH IN PLACE WITH KIMO CLEAR URINE. LUNGS COARS BUT PT DENIES SOB. ON RA AT 98%. PT DENIES NEED FOR ANYTHING AT THIS TIME. NO OTHER APPARENT SIGNS OF DISTRESS. CALL LIGHT IS IN REACH.
--- NOTE | 2023-09-08 02:07 | NUR ---
0155 TELE MILK COLLECTOR CALLED TO REPORT A 5 BEAT RUN OF VTACH, PT'S TELE IS NOW BACK TO THE PREVIOUS RYTHYM OF NSR WITH OCC PVC'S AT 103. WILL LET DR KNOW DURING NEXT CALL. PT LYING IN BED, WATCHING TV. NO APPARENT SIGNS OF DISTRESS. DENIES ANY SYMPTOMS AT THIS TIME. DENIES NEED FOR ANYTHING AT THIS TIME. CALL LIGHT IS IN REACH.
--- NOTE | 2023-09-08 02:07 | NUR ---
0000 REQUESTED AND RECIEVED KEN CRACKERS AND PEANUT BUTTER. NO APPARENT SIGNS OF DISTRESS. CALL LIGHT IS IN REACH.
[2023-09-08 04:56] VITALS: BP 108/84
[2023-09-08 05:39] LABS: BASOPHILS ABSOLUTE AUTO 0.01 K/mm3 (0.00-0.23); BASOPHILS PERCENT AUTO 0 % (0-2); EOSINOPHILS PERCENT AUTO 0 % (0-6); Hemoglobin 13.7 g/dL (13.5-17.5); IMMATURE GRAN ABSOLUTE AUTO 0.02 K/mm3 (0.00-0.10); IMMATURE GRAN PERCENT AUTO 0 % (0-1); LYMPHOCYTES ABSOLUTE AUTO 0.35 K/mm3 (0.84-5.20); LYMPHOCYTES PERCENT AUTO 6 % (21-46); MONOCYTES ABSOLUTE AUTO 0.87 K/mm3 (0.16-1.47); MONOCYTES PERCENT AUTO 14 % (4-13); Mean Corpuscular HGB 27.8 pg (26.0-34.0); Mean Corpuscular HGB Conc 31.9 g/dL (31.5-36.5); Mean Corpuscular Volume 87 fL (80-100); Mean Platelet Volume 10.8 fL (9.1-12.4); NEUTROPHILS ABSOLUTE AUTO 4.84 K/mm3 (1.96-9.15); NEUTROPHILS PERCENT AUTO 80 % (41-73); Platelet Count 163 K/mm3 (150-400); RDW Coefficient Variation 18.4 % (11.7-14.2); RDW Standard Deviation 57.7 fL (35.1-46.3); Red Blood Cell Count 4.93 M/mm3 (4.30-5.90); White Blood Cell Count 6.09 K/mm3 (4.00-11.30)
[2023-09-08 06:04] LABS: Bun/Creatinine Ratio 34.3 (12.0-20.0); Calcium, Blood 8.8 mg/dL (8.5-10.1); Creatinine, Blood 1.05 mg/dL (0.60-1.20); Potassium, Blood 4.7 mmol/L (3.5-5.5)
--- NOTE | 2023-09-08 06:28 | NUR ---
0400 PT LYING IN BED, WAKES EASILY TO VERBAL STIMULI. SOB WITH STANDING, O2 WAS 99% ON 2L NC, HR WAS 110'S, HR IMPROVED AFTER A FEW MINUTES. NO OTHER APPARENT SIGNS OF DISTRESS. CALL LIGHT IS IN REACH. BED ALARM IS ON.
--- NOTE | 2023-09-08 06:32 | NUR ---
PT IS AAO X 4, REPORTS SOB WITH ACTIVITY, ON 2L NC O2 AT 96%. TELE IS NSR TO ST WITH OCC PVC'S AT 90'S TO LOW 100'S. ABOUT 0155 PT HAD A 5 BEAT RUN OF VTACH, PT WAS ASYMPTOMATIC, RETURNED TO PREVIOUS RYTHYM. DR AWARE, NO NEW ORDERS. CONDOM CATH IN PLACE, KIMO CLEAR URINE.
--- NOTE | 2023-09-08 06:34 | NUR ---
PT LYING IN BED, WATCHING TV. NO APPARENT SIGNS OF DISTRESS. CALL LIGHT IS IN REACH. BED ALARM IS ON. NO OTHER CHANGES THIS SHIFT.
[2023-09-08 07:53] VITALS: BP 114/89
[2023-09-08 16:27] VITALS: BP 111/74
--- NOTE | 2023-09-08 18:03 | NUR ---
NOTE PT ALERT AND ORIENTED. VOICE HOARSE AND WEAK. VSS. FLUTTER VALVE PROIVIDED TO PT. SIGNIFICANT COUGH AFTER USING. CALLED DR POWERS FOR COUGH MEDICINE. MODERATE AMOUNT OF THICK, YANG SPUTUM BROUGHT UP. STARTED ON ZAROXALYN TODAY. OUT PUT INCREASED. URINE LIGHT YELLOW, CONTINUES TO HAVE DISTENDED ARM AND NECK VEINS. PT HAD A LARGE INCONTINET BOWEL MOVEMENT AND PULLED HIS CONDOM CATHETER OFF. HE DID NOT CALL FOR BATHROOM ASSIST. HE DENIES PAIN/DISCOMFORT. EATING OK. CARE ON GOING.
[2023-09-08 19:48] VITALS: BP 109/68
[2023-09-09 04:22] VITALS: BP 111/89
--- NOTE | 2023-09-09 05:31 | NUR ---
SHIFT SUMMERY, PT RESTING IN BED, PT HAD A COUPLE COUGHING EPISODES AND HAD REQUESTED SOME HOT TEA FOR HIS THROAT. AT THIS TIME APT SLEEPING WELL. CALL LIGHT IN REACH.
[2023-09-09 06:29] LABS: Bun/Creatinine Ratio 36.6 (12.0-20.0); Calcium, Blood 8.8 mg/dL (8.5-10.1); Creatinine, Blood 0.96 mg/dL (0.60-1.20); Potassium, Blood 4.4 mmol/L (3.5-5.5)
[2023-09-09 07:29] VITALS: BP 108/88
[2023-09-09] MEDS ORDERED: DOXY100 PO (11:16)
[2023-09-09] MEDS ORDERED: GUAI600T33 PO (11:18)
[2023-09-09] MEDS ORDERED: LISI5 PO (11:19)
[2023-09-09] MEDS ORDERED: SPIR25 PO (11:20)
[2023-09-09] MEDS ORDERED: PRED20 PO (11:20)
[2023-09-09] MEDS ORDERED: AIRDUO RESPICL1 EAC4 INH (11:21)
[2023-09-09] MEDS ORDERED: PROAIR DIGIHAL90 MCG INH (11:25)
--- NOTE | 2023-09-09 11:46 | NUR ---
"Spiritual Care Consult | Family request Pt. is resting in his room but awakens when I call his name. Pts. nurse encouraged me to rouse him as she was going to prep him for discharge. After introductions are made attempts to build support and care ar made as we explore hope and offer emotional support. Pt. displayed evidence of being engaged and aware. Prayed for Pt. Pt. verbalized gratitude for the spiritual care visit."
--- NOTE | 2023-09-09 15:32 | NUR ---
PT AWAKE AT START OF SHIFT, WATCHING TV. NO C/O. PT ON BASELINE O2. ADMITTED FOR CHF EXAC D/T FLUID OVERLOAD. PT ON 1.5L FR. LUNGS T/O VERY COARSE. SPIRITUAL CARE CONSULT PLACED AND COMPLETED, PER FAMILY REQUEST. DR POWERS IN TO SEE PT AND DISCUSS PLAN OF CARE. PT TO D/C HOME AND F/U WITH NEW PCP. MEDS FAXED TO [facility] PER PT REQUEST. D/C INSTRUCTIONS REVIEWED WITH PT SEVERAL TIMES TO HELP ENSURE PT UNDERSTOOD IMPROTANCE OF MEDICATION COMPLIANCE AND F/U APPOINTMENTS. PT VERBALIZED UNDERSTANDING EACH TIME. PT ASSISTED OUT TO FRIEND'S CAR VIA W/C WITH BELONGINGS IN HAND.
== END 2023-09-09 12:54 | disposition home or self-care (01) | DRG 291 ==
LOC: ER 11:43 → MEDS 11:44
PROVIDERS: Emergency Medicine; ADMIT Internal Medicine
DX: I11.0 Hypertensive heart disease with heart failure (principal); I50.23 Acute on chronic systolic (congestive) heart failure; J44.1 Chronic obstructive pulmonary disease with (acute) exacerbation; J96.11 Chronic respiratory failure with hypoxia; I48.0 Paroxysmal atrial fibrillation; F17.210 Nicotine dependence, cigarettes, uncomplicated; R00.0 Tachycardia, unspecified; Z79.899 Other long term (current) drug therapy; Z91.148 Patient's other noncompliance with medication regimen for other reason; Z79.51 Long term (current) use of inhaled steroids; Z79.01 Long term (current) use of anticoagulants; Z79.82 Long term (current) use of aspirin; Z98.890 Other specified postprocedural states; Z99.81 Dependence on supplemental oxygen; Z71.6 Tobacco abuse counseling
CPT/HCPCS: 36415; 71045; 80048; 80053; 83735; 83880; 84484; 85025; 93005; 93010; 94640; 94664; 94760; 96372; 96374; 96375; 96376; 99285-25; A9270; G0008; G0378; J1650; J1940; J7512; Q2036

== ENCOUNTER 2023-09-20 13:10 | Inpatient (IN) | payer OTHER ==
[~2023-09-20] VITALS: Ht 167.6 cm; Wt 62.2 kg
[~2023-09-20 13:10] MED LIST changes: +AIRDUO RESPICL1 EAC4 INH; +DOXY100 PO; +LISI5 PO; +PRED20 PO; +PROAIR DIGIHAL90 MCG INH; +SPIR25 PO
[2023-09-20 14:48] LABS: BASOPHILS ABSOLUTE AUTO 0.05 K/mm3 (0.00-0.23); BASOPHILS PERCENT AUTO 1 % (0-2); EOSINOPHILS ABSOLUTE AUTO 0.08 K/mm3 (0.00-0.68); EOSINOPHILS PERCENT AUTO 1 % (0-6); Hematocrit 41.6 % (37.0-53.0); Hemoglobin 12.9 g/dL (13.5-17.5); IMMATURE GRAN ABSOLUTE AUTO 0.02 K/mm3 (0.00-0.10); IMMATURE GRAN PERCENT AUTO 0 % (0-1); LYMPHOCYTES ABSOLUTE AUTO 0.58 K/mm3 (0.84-5.20); LYMPHOCYTES PERCENT AUTO 6 % (21-46); MONOCYTES ABSOLUTE AUTO 0.94 K/mm3 (0.16-1.47); MONOCYTES PERCENT AUTO 10 % (4-13); Mean Corpuscular HGB 27.6 pg (26.0-34.0); Mean Corpuscular Volume 89 fL (80-100); Mean Platelet Volume 10.3 fL (9.1-12.4); NEUTROPHILS ABSOLUTE AUTO 7.81 K/mm3 (1.96-9.15); NEUTROPHILS PERCENT AUTO 83 % (41-73); Platelet Count 201 K/mm3 (150-400); RDW Coefficient Variation 18.6 % (11.7-14.2); RDW Standard Deviation 60.9 fL (35.1-46.3); Red Blood Cell Count 4.67 M/mm3 (4.30-5.90); White Blood Cell Count 9.48 K/mm3 (4.00-11.30)
[2023-09-20 15:15] LABS: Albumin, Blood 3.3 g/dL (3.4-5.0); Albumin/Globulin Ratio 0.8 (0.8-1.8); Bun/Creatinine Ratio 42.2 (12.0-20.0); Calcium, Blood 8.8 mg/dL (8.5-10.1); Creatinine, Blood 0.81 mg/dL (0.60-1.20); Globulin, Blood 4.1 g/dL (2.2-4.0); Potassium, Blood 3.6 mmol/L (3.5-5.5); Total Protein, Blood 7.4 g/dL (6.4-8.2)
[2023-09-20] MEDS ORDERED: IPRAT-ALBUT 0.5-3 ML INH (16:19)
[2023-09-20 16:39] LABS: Base Excess Venous 9.8 mmol/L; Bicarbonate Venous 29.9 mmol/L (24.0-30.0); pH Blood Venous 7.26 (7.34-7.37)
[2023-09-20 18:52] LABS: Influenza A, PCR NEGATIVE (NEGATIVE); Influenza B, PCR NEGATIVE (NEGATIVE); Resp Syncytial Virus, PCR NEGATIVE (NEGATIVE); SARS-Cov-2 (COVID-19) PCR, MMC NEGATIVE (NEGATIVE)
[2023-09-20 20:44] VITALS: BP 117/80
[2023-09-20] MEDS ORDERED: Aspir 8181 MG PO (22:31)
--- NOTE | 2023-09-20 22:51 | NUR ---
ASSUMPTION OF CARE NOTE PATIENT ARRIVED TO UNIT FROM ED VIA GURNEY AT APPROX 2024. PATIENT TRANSFERRED TO HOSPITAL BED VIA SLIDER SHEET. INCONTINENT OF URINE. PARTIAL BATH PERFORMED, GOWN AND ATTENDS IN PLACE. PATIENT ARRIVED ON BIPAP WITH 4L BLEED IN, SATS >90%. DIFFICULTY OBTAINING ACCURATE OXYGEN SAT AT TIMES, SENSOR WRAPPED AROUND HEAD. USES 2L VIA NASAL CANNULA AT BASELINE. PATIENT IS SHORT OF BREATH, ONLY ABLE TO SPEAK IN SHORT STATEMENTS. ABLE TO TOLERATE TAKING OFF BIPAP MASK FOR PO MEDICATIONS WITH WATER. IS ALERT AND ORIENTED X4. TELEMETRY SHOWING SINUS TACH 90's-100's. BP STABLE. DENIES CHEST PAIN OR PRESSURE. IS CURRENTLY RESTING IN ROOM. CALL LIGHT IN REACH.
[2023-09-20 23:14] VITALS: BP 114/80
--- NOTE | 2023-09-21 02:35 | NUR ---
UPDATE BLADDER SCAN PERFORMED BY KING DOYLE NO VOID SINCE ASSUMPTION OF CARE, 633ML. PATIENT UNABLE TO VOID, REPORTS NO NEED OR SENSATION TO. THIS RN PERFORMED STRAIGHT CATH PROCEDURE, 600ML OUT. PATIENT TOLERATED WELL. ATTENDS CHANGED. SMALL SMEAR BM NOTED. REPOSITIONED IN BED. CALL LIGHT IN REACH.
[2023-09-21 04:00] VITALS: BP 112/81
[2023-09-21 04:51] LABS: BASOPHILS PERCENT AUTO 0 % (0-2); EOSINOPHILS PERCENT AUTO 0 % (0-6); Hematocrit 38.8 % (37.0-53.0); Hemoglobin 12.2 g/dL (13.5-17.5); IMMATURE GRAN ABSOLUTE AUTO 0.02 K/mm3 (0.00-0.10); IMMATURE GRAN PERCENT AUTO 0 % (0-1); LYMPHOCYTES ABSOLUTE AUTO 0.18 K/mm3 (0.84-5.20); LYMPHOCYTES PERCENT AUTO 3 % (21-46); MONOCYTES ABSOLUTE AUTO 0.11 K/mm3 (0.16-1.47); MONOCYTES PERCENT AUTO 2 % (4-13); Mean Corpuscular HGB 27.2 pg (26.0-34.0); Mean Corpuscular HGB Conc 31.4 g/dL (31.5-36.5); Mean Corpuscular Volume 87 fL (80-100); Mean Platelet Volume 10.6 fL (9.1-12.4); NEUTROPHILS ABSOLUTE AUTO 6.44 K/mm3 (1.96-9.15); NEUTROPHILS PERCENT AUTO 95 % (41-73); Platelet Count 176 K/mm3 (150-400); RDW Coefficient Variation 18.6 % (11.7-14.2); RDW Standard Deviation 57.9 fL (35.1-46.3); Red Blood Cell Count 4.48 M/mm3 (4.30-5.90); White Blood Cell Count 6.75 K/mm3 (4.00-11.30)
[2023-09-21 05:18] LABS: Albumin, Blood 3.1 g/dL (3.4-5.0); Albumin/Globulin Ratio 0.8 (0.8-1.8); Bilirubin, Total 1.7 mg/dL (0.1-1.0); Bun/Creatinine Ratio 38.6 (12.0-20.0); Calcium, Blood 8.7 mg/dL (8.5-10.1); Creatinine, Blood 0.85 mg/dL (0.60-1.20); Globulin, Blood 3.8 g/dL (2.2-4.0); Total Protein, Blood 6.9 g/dL (6.4-8.2)
--- NOTE | 2023-09-21 05:28 | NUR ---
SHIFT SUMMARY NO ACUTE CHANGES SINCE PREVIOUS NOTES. PATIENT REMAINS ALERT AND ORIENTED X4. SLEPT THROUGHOUT SHIFT, EASILY AROUSABLE TO VERBAL STIMULI. COOPERATIVE WITH CARE. BIPAP USED THROUGHOUT SHIFT, WITH 4L BLEED IN, SATS >95%. ATTEMPTED TO TITRATE BLEED IN DOWN, UNABLE TO SUSTAIN >90%. SOFT, RASPY VOICE NOTED THROUGHOUT. CONTINUED SHORTNESS OF BREATH WITH SPEAKING. RESPIRATIONS, WORK OF BREATHING DECREASED SINCE ARRIVAL TO UNIT. TELEMETRY CONTINUING TO SHOW SINUS TACH 90's-100's. BP STABLE. REPOSITIONING REGULARLY. ATTENDS IN PLACE, CHANGING PRN TO KEEP C/D/I. CALL LIGHT IN REACH. WILL REPORT TO ONCOMING RN.
[2023-09-21 07:41] VITALS: BP 109/75
[2023-09-21 11:38] VITALS: BP 105/77
--- NOTE | 2023-09-21 14:40 | NUR ---
Spiritual care visit conducted. Patient is sitting up in bed and alert. He is very soft spoken and of limited words. He tells me that life and family are most important to him. He welcomed prayer. I gladly provided prayer. Patient is tearful during the prayer and at it's conclusion he said, "God bless you, thank you." He states that he has no other needs at this time and so I allow him to rest.
[2023-09-21 16:30] VITALS: BP 108/67
--- NOTE | 2023-09-21 18:48 | NUR ---
SHIFT SUMMARY PT A/OX4 AND COOPERATIVE OF CARE. PT ABLE TO EXPRESS NEEDS AND CALLS APPROPIATE. PT VERY SOFT SPOKEN. PT ON BIPAP WITH A 5L BLEED IN AT TIME OF ARRVAL. PT TITRATED TO 3L NC, 2L NC IS PT BASELINE. PT RR 18-22 THROUGHOTU SHIFT. OTHER VSS THROUGHOUT SHIFT. NO REPORT OF CHEST PAIN/PRESSURE. PT DID REPORT SOB PERIODICALLY DURING SHIFT. PT BLADDER SCANNED TWICE DURING SHIFT AND STRAIGHT CATHED ONCE, SEE CHARTS. PT ENCOURAGED TO USE URINAL PT IS ABLE TO URINATE AT BASELINE. PT WAS UNABLE TO USE URINAL WHILE LYING DOWN. PT ABLE TO VOID WHILE STADING AT EOB WITH 2 STAFF MEMBERS ASSISTING. INTERVENTIONAL RADIOLOGY CONSULT CALLED IN. CASE MANAGEMENT INFORMED PT THAT PT BROTHER HAS FILED A REPORT TO POLICE FOR PEOPLE LIVING IN PT HOUSE, PT RECEPTIVE TO NEWS. NO ACUTE EVENTS DURING SHIFT.
[2023-09-21 19:35] VITALS: BP 107/65
[2023-09-21 23:10] VITALS: BP 98/74
[2023-09-22] VITALS (16 sets, daily range): BP systolic 10–130; BP diastolic 62–92
[2023-09-22 04:13] LABS: BASOPHILS PERCENT AUTO 0 % (0-2); EOSINOPHILS PERCENT AUTO 0 % (0-6); Hematocrit 37.2 % (37.0-53.0); Hemoglobin 11.7 g/dL (13.5-17.5); IMMATURE GRAN ABSOLUTE AUTO 0.02 K/mm3 (0.00-0.10); IMMATURE GRAN PERCENT AUTO 0 % (0-1); LYMPHOCYTES ABSOLUTE AUTO 0.12 K/mm3 (0.84-5.20); LYMPHOCYTES PERCENT AUTO 2 % (21-46); MONOCYTES ABSOLUTE AUTO 0.29 K/mm3 (0.16-1.47); MONOCYTES PERCENT AUTO 5 % (4-13); Mean Corpuscular HGB 27.5 pg (26.0-34.0); Mean Corpuscular HGB Conc 31.5 g/dL (31.5-36.5); Mean Corpuscular Volume 87 fL (80-100); Mean Platelet Volume 10.6 fL (9.1-12.4); NEUTROPHILS ABSOLUTE AUTO 5.13 K/mm3 (1.96-9.15); NEUTROPHILS PERCENT AUTO 92 % (41-73); Platelet Count 172 K/mm3 (150-400); RDW Coefficient Variation 18.5 % (11.7-14.2); RDW Standard Deviation 57.5 fL (35.1-46.3); Red Blood Cell Count 4.26 M/mm3 (4.30-5.90); White Blood Cell Count 5.56 K/mm3 (4.00-11.30)
--- NOTE | 2023-09-22 04:35 | NUR ---
SHIFT SUMMARY PT A&Ox4, CALLS AND COMMUNICATES NEEDS APPROPRIATELY. PT VERY SOFT SPOKEN. BP STABLE, SR-ST 90-100's, DENIES CP/PRESSURE. SpO2> 92% ON 2L VIA NC OR BIPAP w/ 3L BLEED IN. PT CONTINENT OF URINE, USES URINAL AT BEDSIDE WITH ASSISTANCE, NO BM THIS SHIFT. PT WITH NO C/O PAIN THROUGHOUT SHIFT. NO OTHER EVENTS, WILL REPORT TO ONCOMING RN.
[2023-09-22 04:44] LABS: Albumin, Blood 2.9 g/dL (3.4-5.0); Albumin/Globulin Ratio 0.8 (0.8-1.8); Bilirubin, Total 0.7 mg/dL (0.1-1.0); Bun/Creatinine Ratio 46.1 (12.0-20.0); Calcium, Blood 8.4 mg/dL (8.5-10.1); Creatinine, Blood 0.83 mg/dL (0.60-1.20); Globulin, Blood 3.8 g/dL (2.2-4.0); Potassium, Blood 3.5 mmol/L (3.5-5.5); Total Protein, Blood 6.7 g/dL (6.4-8.2)
--- NOTE | 2023-09-22 17:46 | NUR ---
UPDATE SAILING INSTRUCTOR CONTACTED THIS RN AROUND 1730 INFORMING THAT THEY WERE HEADED DOWN TO GET PT FOR PROCEDURE. THIS RN WENT TO PT ROOM TO INFORM HIM THAT STAFF WAS COMING TO GRAB HIM. UPON ENTERING ROOM, THIS RN OBSERVED PT HAD HIS DINNER TRAY INFRONT OF HIM AND PT WAS EATING. THIS IMMEDIATLEY INSTRUCTED PT NOT TO TAKE ANOTHER BITE BECAUSE HE WAS GOING FOR PROCEDURE. TRAY REMOVED FROM ROOM. SAILING INSTRUCTOR'S ARRIVED AND WERE INFORMED THAT PT HAD ATE ROUGHLY 50% OF HIS ENTREE. SAILING INSTRUCTOR CONTACTED PROCEDURE STAFF. STAFF FROM PROCEDURE CONTACTED THIS RN VIA VOICERA. THIS RN INFORMED MOLDER SHOULDER PAD THAT BIOLOGICAL SCIENCES PROFESSOR PROVIDED TRAY BY MISTAKE AND MISTAKE WAS NOT CAUGHT IN TIME. WIRELESS DEVELOPMENT MANAGER INFORMED.
--- NOTE | 2023-09-22 17:59 | NUR ---
SHIFT SUMMARY PT A/OX4. PT ABLE TO EXPRESS NEEDS AND CALLS APPROPIATELY. PT VSS THROUGHOUT SHIFT WITH O2 SATS IN THE 90'S ON 3L NC. NO REPORT OF CHEST PAIN/PRESSURE THROUGHOUT SHIFT. PT WAS NPO AFTER BREAKFAST FOR PROCEDURE, PT PROVIDED DINNER TRAY BY MISTAKE, SEE PREVIOUS NOTES. PT INDEPENDENT IN BED, ABLE TO TURN SELF AND BOOST SELF, PT SOMETIMES NEEDED REMINDERS TO TURN. PT HAD ONE INCONTINENT EPISODE, PT REPORTED THAT HE DROPPED HIS URINAL. OTHERWISE PT USING URINAL TO VOID WHILE IN BED. PT LEFT FOR PROCEDURE AT 1730.
--- NOTE | 2023-09-22 18:42 | NUR ---
PT ARRIVED FROM PROCEDURE AT 1835. PT ON 3L AT TIME OF ARRIVAL. PT INSTRUCTED NOT TO BEND AT THE WAIST DUE TO FEMORAL SITE, PT AGREED. PT IFORMED OF FREQUENT VITALS FOR POST PROCEDURE PROTOCOL, PT AGREED. VSS AT TIME OF ARRIVAL. FEMORAL SITE C/D/I, NO REPORT OF TENDERNESS.
--- NOTE | 2023-09-22 21:49 | NUR ---
PT ALERT AND ORIENTED X 4, COOPERATIVE WITH CARE AND ABLE TO MAKE NEEDS KNOWN, SOFT SPOKEN. PT ON 3L NC MAINTAINING O2 SAT ABOVE 92%, LUNG SOUNDS COARSE AND DIMINISHED AT BASES, PT DENIES SOB. HR 90'S-110'S, AT 2005 PT CONVERTED TO AFIB IN THE 140'S-160'S, AT 2044 PT CONVERTED BACK TO SR 90'S-110'S, NOTIFIED, PT DENIED CHEST PAIN/PRESSURE/DIZZINESS AND MAINTAINED STABLE BP. PT CONTINUES TO DENY CHEST PAIN/PRESSURE AND BP STABLE, HR 90'S-110'S. PT USES URINAL INDEPENDENTLY. DISCOLORATION TO BLE, PEDAL PULSES PRESENT AND FAINT. POST ANGIO VITALS TAKEN PER PROTOCAL, PT LAYED FLAT PER PROTOCOL, R GROIN SITE SOFT/NONTENDER/0 HEMATOMA. PT'S BROTHER WAS AT BEDSIDE VISITING WITH PT AT BEGINNING OF SHIFT, HE LEFT SHORTLY AFTER SHIFT CHANGE. PT HAS HAD SEVERAL SNACKS THIS SHIFT. PT IS RESTING IN BED, CALL LIGHT WITHIN REACH.
[2023-09-23] VITALS (19 sets, daily range): BP systolic 102–127; BP diastolic 72–96
[2023-09-23 04:06] LABS: BASOPHILS PERCENT AUTO 0 % (0-2); EOSINOPHILS PERCENT AUTO 0 % (0-6); Hematocrit 38.5 % (37.0-53.0); Hemoglobin 12.1 g/dL (13.5-17.5); IMMATURE GRAN ABSOLUTE AUTO 0.03 K/mm3 (0.00-0.10); IMMATURE GRAN PERCENT AUTO 0 % (0-1); LYMPHOCYTES ABSOLUTE AUTO 0.11 K/mm3 (0.84-5.20); LYMPHOCYTES PERCENT AUTO 1 % (21-46); MONOCYTES ABSOLUTE AUTO 0.39 K/mm3 (0.16-1.47); MONOCYTES PERCENT AUTO 5 % (4-13); Mean Corpuscular HGB 27.8 pg (26.0-34.0); Mean Corpuscular HGB Conc 31.4 g/dL (31.5-36.5); Mean Corpuscular Volume 88 fL (80-100); Mean Platelet Volume 10.7 fL (9.1-12.4); NEUTROPHILS ABSOLUTE AUTO 7.86 K/mm3 (1.96-9.15); NEUTROPHILS PERCENT AUTO 94 % (41-73); Platelet Count 160 K/mm3 (150-400); RDW Coefficient Variation 18.6 % (11.7-14.2); RDW Standard Deviation 59.6 fL (35.1-46.3); Red Blood Cell Count 4.36 M/mm3 (4.30-5.90); White Blood Cell Count 8.39 K/mm3 (4.00-11.30)
--- NOTE | 2023-09-23 04:20 | NUR ---
SHIFT SUMMARY NO ACUTE CHANGES, SEE PREVIOUS NOTE. PT CONTINUES TO BE ALERT AND ORIENTED X 4, COOPERATIVE WITH CARE AND ABLE TO MAKE NEEDS KNOWN. RESPIRATORY THERAPY CAME BY AND PLACED PT ON BIPAP, PT MAINTAINING 02 SATURATION ABOVE 92%, 3L BLEED IN. HR 100'S AND BP STABLE. PT HAS BEEN SLEEPING THE MAJORITY OF THE SHIFT. CALL LIGHT WITHIN REACH.
[2023-09-23 04:29] LABS: Albumin, Blood 2.9 g/dL (3.4-5.0); Albumin/Globulin Ratio 0.8 (0.8-1.8); Bilirubin, Total 0.7 mg/dL (0.1-1.0); Bun/Creatinine Ratio 38.8 (12.0-20.0); Calcium, Blood 8.4 mg/dL (8.5-10.1); Creatinine, Blood 0.82 mg/dL (0.60-1.20); Globulin, Blood 3.8 g/dL (2.2-4.0); Potassium, Blood 3.9 mmol/L (3.5-5.5); Total Protein, Blood 6.7 g/dL (6.4-8.2)
[2023-09-23 06:06] LABS: BASOPHILS PERCENT MAN 0 % (0-2); EOSINOPHILS PERCENT MAN 0 % (0-6); LYMPHOCYTES ABSOLUTE MAN 0.08 K/mm3 (0.84-5.20); LYMPHOCYTES PERCENT MAN 1 % (21-46); MONOCYTES ABSOLUTE MAN 0.33 K/mm3 (0.16-1.47); MONOCYTES PERCENT MAN 4 % (4-13); NEUTROPHILS ABSOLUTE MAN 7.97 K/mm3 (1.96-9.15); SEG NEUTROPHILS PERCENT MAN 95 % (41-73); TOTAL CELLS COUNTED 100
--- NOTE | 2023-09-23 17:13 | NUR ---
SHIFT SUMMARY PT IS A&OX4, 1P SBA W/ FWW, AND HAS BEEN UP IN THE CHAIR MOST OF THE DAY. HE WORKED W/ PT AND OT AND THEY ARE RECOMMENEDING THAT HE GETS A WALKER AT HOME BECAUSE HE CAN BE UNSTEADY AND IMPULSIVE WHEN TRANSFERING. ON TELE HE HAS BEEN SR ON TELE AND BP HAS BEEN STABLE. HE HAS ONE SMALL RUN OF AFIB RVR TODAY THAT LASTED ABOUT 2 SEC'S REPORTED BY OVERLOCKER. THE PT WAS ASYMPTOMATIC AT THE TIME AND WAS TURNING IN BED. HE HAS BEEN TITRAITED DOWN TO 2L NC WHICH IS HIS BASELINE NEED FOR OXYGEN. NO ACUTE EVENT. FIRE IGNITION RISK HAS BEEN ASSESSED.
--- NOTE | 2023-09-23 18:20 | NUR ---
PT CONVERTED TO AFIB RVR AT 1730 AT 1730 I-frontdesk CALLED AND SAID THE PT'S HR IS TOUCHING UP TO THE 150'S. I WENT INTO THE ROOM AND THE PT WAS PUSHING HIS DINNER TRAY AWAY FROM HIM. HE WAS ASYMTOMATIC. HE WAS IN AFIB RVR HR 130'S-160'S. BP OBTAINED AND I PULLED THE PRN IV LOPRESSOR. A TOTAL OF THREE DOSES WERE GIVEN PER ORDER. AN EKG WAS OBTAINED. I CALLED DR. MORTON AND SHE WANTED ME TO GIVE 25MG PO LOPRESSOR NOW, PUT IN 5MG IV LOPRESSOR PRN Q4 FOR HR >130, CHANGE HIM BACK TO PCU FOR NOW, AND SHE SAID SHE WILL LOOK AT/CHANGE HIS AM DOSE OF METOPROLOL SUCCINATE. SEE NOTES FOR ANY UPDATES.
--- NOTE | 2023-09-23 20:28 | NUR ---
PT ALERT AND ORIENTED X 4, COOPERATIVE WITH CARE AND ABLE TO MAKE NEEDS KNOWN, SOFT SPOKEN. PT ON 2L NC AND MAINTAINING 02 SAT ABOVE 92%, DENIES SOB. DAY SHIFT REPORTED THAT PT CONVERTED TO AFIB AT 1730, WAS NOTIFIED, MEDICATED PER EMAR. PT STILL IN AFIB 120S-130S, DENIES CHEST PAIN/PRESSURE/DIZZINESS, BP STABLE. PT USES URINAL INDEPENDENTLY AND TOLERATESS WELL. PT WAS SLEEPING AT BEGINNING OF SHIFT, I WOKE HIM UP FOR VITALS AND MEDICATIONS. GAVE PT 2 VANILLA PUDDINGS AND 1 PACKET OF KEN CRACKERS PER HIS REQUEST. PT IS RESTING IN BED WITH TV ON, CALL LIGHT WITHIN REACH.
[2023-09-24] VITALS (13 sets, daily range): BP systolic 110–127; BP diastolic 73–103
[2023-09-24 04:11] LABS: BASOPHILS PERCENT AUTO 0 % (0-2); EOSINOPHILS PERCENT AUTO 0 % (0-6); Hematocrit 39.5 % (37.0-53.0); IMMATURE GRAN ABSOLUTE AUTO 0.04 K/mm3 (0.00-0.10); IMMATURE GRAN PERCENT AUTO 1 % (0-1); LYMPHOCYTES ABSOLUTE AUTO 0.23 K/mm3 (0.84-5.20); LYMPHOCYTES PERCENT AUTO 3 % (21-46); MONOCYTES ABSOLUTE AUTO 0.57 K/mm3 (0.16-1.47); MONOCYTES PERCENT AUTO 7 % (4-13); Mean Corpuscular HGB 27.5 pg (26.0-34.0); Mean Corpuscular HGB Conc 30.4 g/dL (31.5-36.5); Mean Corpuscular Volume 91 fL (80-100); Mean Platelet Volume 11.1 fL (9.1-12.4); NEUTROPHILS ABSOLUTE AUTO 7.73 K/mm3 (1.96-9.15); NEUTROPHILS PERCENT AUTO 90 % (41-73); Platelet Count 161 K/mm3 (150-400); RDW Coefficient Variation 18.8 % (11.7-14.2); RDW Standard Deviation 61.2 fL (35.1-46.3); Red Blood Cell Count 4.36 M/mm3 (4.30-5.90); White Blood Cell Count 8.57 K/mm3 (4.00-11.30)
[2023-09-24 04:37] LABS: Albumin/Globulin Ratio 0.7 (0.8-1.8); Bilirubin, Total 0.6 mg/dL (0.1-1.0); Bun/Creatinine Ratio 35.5 (12.0-20.0); Calcium, Blood 8.4 mg/dL (8.5-10.1); Creatinine, Blood 0.93 mg/dL (0.60-1.20); Globulin, Blood 4.1 g/dL (2.2-4.0); Magnesium, Blood 2.2 mg/dL (1.6-2.4); Potassium, Blood 4.6 mmol/L (3.5-5.5); Total Protein, Blood 7.1 g/dL (6.4-8.2)
--- NOTE | 2023-09-24 05:18 | NUR ---
SHIFT SUMMARY PT CONTINUES TO BE ALERT AND ORIENTED X 4, COOPERATIVE WITH CARE AND ABLE TO MAKE NEEDS KNOWN, SOFT SPOKEN. PT REMAINS ON 2L NC AND MAINTAINING 02 SATURATION ABOVE 92%, PT DENIES SOB. PT'S HR CONTINUES TO BE IN 120'S-130'S A FIB DESPITE IV PUSHES OF BRENNA, NOTIFIED & ORDERS GIVEN. PT DENIES CHEST PAIN/PRESSURE/DIZZINESS. PT CONTINUES TO USE URINAL INDEPENDENTLY. IV IN R AC STARTED LEAKING SO I REMOVED IV AND PLACED A NEW IV IN L FOREARM, IV PATENT/FLUSHED/SALINE LOCKED. PT HAS BEEN SLEEPING THE MAJORITY OF THE NIGHT WITH TV ON. CALL LIGHT WITHIN REACH.
--- NOTE | 2023-09-24 10:57 | NUR ---
I CALLED DR. MORTON THIS MORNING ABOUT 0800 TO SEE THE PLAN FOR THE AFIB RVR. SHE WANTED ME TO GIVE THE SECOND DOSE OF DIG THEN, INSTEAD OF WAITING UNTIL 1025 AND CALL HER BACK AT 1100 TO UPDATE HER ON THE PT. I JUST CALLED HER AT ABOUT 1055 AND SHE WANTS TO GIVE ANOTHER 25MG PO METOPROLOL TO THE PT, AND SHE STATED SHE WILL PUT IN MORE ORDERS FOR DIGOXZIN AND LOPRESSOR. SEE NOTES FOR ANY UPDATES.
--- NOTE | 2023-09-24 16:05 | NUR ---
DR. MORTON CALLED TO TOUCH BASE ON PCU 01'S HR SHE STATED TO STILL GIVE THE 1800 DOSE OF DIG AND IF THE HR IS GREATER THAN 130 THEN GIVE THE LOPRESSOR PUSH. WE WILL CHECK A DIG LEVEL IN THE AM. NO OTHER ORDER AT THIS TIME. PT IS STILL ASYMTOMATIC.
--- NOTE | 2023-09-24 16:31 | NUR ---
SHIFT SUMMARY THE PT HAS BEEN A&OX4, BUT ACTING FLAT. HE HAS NTO USED HIS CALL LIGHT MUCH AND HAS BEEN SLEEPING ALOT OF THE DAY. HE DID SAY WE WERE ALLOWED TO GIVE UPDATES TO HIS BROTHER YOGI AND ROOMATE JF. IT WAS UPDATED ON THE CHART. HE HAS BEEN AFIB ON TELE AND HAS BEEN DIG LOADED. HR IS RANGING 100'S-130'S. BP STABLE AND PT ASYMPTOMATIC. HE HAS BEEN ON HIS BL OF 2L NC W/ NO COMPLAINTS OF SOB. FIRE IGNITION RISK HAS BEEN ASSESSED AND EDUCATION HAS BEEN PROVIDED.
--- NOTE | 2023-09-24 20:21 | NUR ---
PT ALERT AND ORIENTED X 4, COOPERATIVE WITH CARE AND ABLE TO MAKE NEEDS KNOWN, SOFT SPOKEN. PT ON 1L NC MAINTAINING 02 SATURATION ABOVE 92%, PT DENIES SOB. HR AFIB 110'S-130'S, PT DENIES CHEST PAIN/PRESSURE, MD AWARE OF, MEDICATED PER EMAR. PT USES URINAL INDEPENDENTLY. PT COMPLAINS OF NUMBNESS/TINGLING BLE WORSE IN BOTH FEET, MEDICATED PER EMAR. IV IN L FA PATENT, FLUSHED, AND SALINE LOCKED. PT IS RESTING IN BED WATCHING TV. CALL LIGHT WITHIN REACH.
[2023-09-25] VITALS (9 sets, daily range): BP systolic 104–132; BP diastolic 65–79
[2023-09-25 04:17] LABS: BASOPHILS PERCENT AUTO 0 % (0-2); EOSINOPHILS PERCENT AUTO 0 % (0-6); Hemoglobin 11.5 g/dL (13.5-17.5); IMMATURE GRAN ABSOLUTE AUTO 0.02 K/mm3 (0.00-0.10); IMMATURE GRAN PERCENT AUTO 0 % (0-1); LYMPHOCYTES ABSOLUTE AUTO 0.16 K/mm3 (0.84-5.20); LYMPHOCYTES PERCENT AUTO 3 % (21-46); MONOCYTES ABSOLUTE AUTO 0.56 K/mm3 (0.16-1.47); MONOCYTES PERCENT AUTO 9 % (4-13); Mean Corpuscular HGB 27.3 pg (26.0-34.0); Mean Corpuscular HGB Conc 30.3 g/dL (31.5-36.5); Mean Corpuscular Volume 90 fL (80-100); Mean Platelet Volume 10.5 fL (9.1-12.4); NEUTROPHILS ABSOLUTE AUTO 5.47 K/mm3 (1.96-9.15); NEUTROPHILS PERCENT AUTO 88 % (41-73); Platelet Count 124 K/mm3 (150-400); RDW Coefficient Variation 18.7 % (11.7-14.2); RDW Standard Deviation 60.9 fL (35.1-46.3); Red Blood Cell Count 4.22 M/mm3 (4.30-5.90); White Blood Cell Count 6.21 K/mm3 (4.00-11.30)
[2023-09-25 04:54] LABS: Alanine Aminotransfer (ALT/SGP 27 U/L (12-78); Albumin/Globulin Ratio 0.8 (0.8-1.8); Alk Phos 65 U/L (50-136); Anion Gap 3 mmol/L (6-16); Aspartate Aminotrans (AST/SGOT 23 U/L (12-37); Bilirubin, Total 0.5 mg/dL (0.1-1.0); Blood Urea Nitrogen 34 mg/dL (8-24); Bun/Creatinine Ratio 40.1 (12.0-20.0); CO2, Blood 39 mmol/L (21-32); Calcium, Blood 8.4 mg/dL (8.5-10.1); Chloride, Blood 96 mmol/L (98-108); Creatinine, Blood 0.85 mg/dL (0.60-1.20); Digoxin (Lanoxin) 1.45 ug/mL (0.80-2.00); Globulin, Blood 3.9 g/dL (2.2-4.0); Glomerular Filtration Rate 98 (60-); Glucose, Blood 138 mg/dL (70-99); Potassium, Blood 4.8 mmol/L (3.5-5.5); Sodium, Blood 138 mmol/L (136-145); Total Protein, Blood 6.9 g/dL (6.4-8.2)
--- NOTE | 2023-09-25 05:11 | NUR ---
SHIFT SUMMARY NO ACUTE CHANGES, SEE PREVIOUS NOTE. PT'S HR HAS BEEN AFIB 110'S-120'S, DENIES CHEST PAIN/PRESSURE/DIZZINESS. CONTINUES TO MAINTAIN 02 SATURATION ABOVE 92% ON 1L NC. CONTINUES TO USE URINAL INDEPENDENTLY. IV TO L AC STILL PATENT/FLUSHED/SALINE LOCKED. PT SLEPT THE MAJORITY OF THE NIGHT. PT SLEEPING IN BED WITH TV ON, CALL LIGHT WITHIN REACH.
--- NOTE | 2023-09-25 13:56 | NUR ---
THIS AM I CALLED DR. MOTRON BECAUSE I NOTICED A FEW CHANGES ON THE PT SUCH HAS WORSENING EDEMA, LUNG SOUNDS, AND THE NEED FOR HE CAMOUFLAGE ASSEMBLER TO FIND PEDAL PULSES. I ASKED/GOT ORDERED A FLUID RESTRICTION, GET A REPEAT BNP, REPEAT CHEST XRAY AND ASKED TO START MAINTENCE DIG FOR THE AFIB. WHEN DR. MONCADA WAS IN THE ROOM THE BNP CAME BACK AND I ADRESSED IT AND HE MADE SOME CHANGES TO THE LASIX. PLAN OF CARE DISCUSSED WITH LASTING MACHINE OPERATOR
--- NOTE | 2023-09-25 16:57 | NUR ---
SHIFT SUMMARY PT IS A&OX4, CALLS APPROPRAITELY, AND IS A 1P W/ FWW FOR TX. HE HAS BEEN ON A STICT I&O W/ A FLUID RESTRICTION TODAY. THE FLUID RESTRICTION IS FOR A TOTAL OF 1200CC'S PER 24 HR. PT HAS BEEN ON 2L NC W/ NO COMPLAINTS OF SOB. WE TRIED TITRAITING TO RA AND HE WAS DESATURATING. DUE TO HIS SWELLING WE HAVE HAD HE LEGS ELEVATED ALL SHIFT IN BED AND IN THE CHAIR. ON TELE HE HAS BEEN AFIB 100'S-120'S. BP STABLE. NO ACUTE EVENTS. BNP >3,000. SEE PREVIOUS NOTE. CARE DISCUSSED W/ COMMERCIAL SPECIALIST AND DR. MORTON. FIRE IGNITION RISK HAS BEEN ASSESSED AND EDUCATION PROVIDED.
[2023-09-26] VITALS (8 sets, daily range): BP systolic 103–129; BP diastolic 44–88
--- NOTE | 2023-09-26 06:00 | NUR ---
EOS: ONLY CHANGES FROM ASSUMPTION OF CARE ARE THAT TH EPATIENT IS ON 3L VIA NC. HEARTRATE HAS BEEN IMPROVED. IN THE 90-100'S. DENIES CHEST PAIN, REPOSITIONED SELF, USED THE URINAL AT THE BEDSIDE, DID NOT WANT TO GET UP VSS, DECLINED EDUCATION MOST OF THE TIME, UNCHAGED FROM ASSUMPTION. NO CONCERNS WONTINUE TO MONITOR.
--- NOTE | 2023-09-26 07:35 | NUR ---
INITIAL ASSESSMENT: Patient is alert and oriented x4, he has a flat affect and is [place]. He reports pain to his bilateral feet, he states this has been going on for some time now. He rates his pain at an 8/10, he states the pain prevents him from being able to be on his feet for long periods at a time. HR Irreg, he is in A-Flutter this am with a rate in the 90s-low 100s. He denies chest pain or pressure. LS DIM with EXP wheezes and crackles noted in the bases. His saturations are high 90s on 2l via nc. BT+, he states he has not had a BM in two days. Stool softners given this am. He has a right groin site that has bruising around it extending down his leg. He has a large hematoma in his right groin. BLE are dusky with some mottling noted to his thighs and knees. PPP via doppler and marked. Patients feet are dusky from about the mid foot to the tips of the toes, cap refill is 5 seconds. Tramadol and Tylenol given for pain. Patient denies other needs at time. Call light in reach.
--- NOTE | 2023-09-26 11:44 | NUR ---
ADMINISTERED PROBIOTICS AND PT ASKED FOR MORE WATER BUT STILL HAS SOME IN PREVIOUS CUP. HELPED CONNECT HIM TO THE HOSPITAL [place] HE ASKED. TOOK HIS VITALS AND EVERYTHING IS WITHIN NORMAL LIMITS FOR THE PT. IS CURRENTLY RELAXING PLAYING GAMES ON HIS PHONE, WILL CONTINUE TO CHECK IN ON HIM FREQUENTLY.
--- NOTE | 2023-09-26 14:47 | NUR ---
Ultrasound: Patient had an ultrasound completed on the right groin site. 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 He was able to compress the aneurysm and get the blood flow stopped. He discussed the results with Dr. Dumont, orders for the patient to lie flat for 4 hours and no bending of the right hip joint for the duration of time listed. Patient verbalizes understanding, call light in reach.
--- NOTE | 2023-09-26 17:28 | NUR ---
SUMMARY: Patient has been alert and oriented x4 T/O the shift. He has been C/O numbness and tingling to his BLE, and pain for which he has been given tramadol and tyelnol. HR Irreg, he has been aflutter T/O the shift, rate has been 90s-115. His oral metoprolol was increased this shift from 50 to 75 mg PO BID. Blood pressure has remained stable T/O the shift with medication changes. LS with some EXP wheezing and crackles in the bases, biox has been high 90s on 2L via NC. BT+, he did not have a BM this shift. BLE are dusky. He has alot of bruising to his right groin site that extends down into his thigh. He has a large hematoma in his right groin as well. Patient had an US done of this groin site and a pseudoaneurysm was found, the tech was able to get the bleeding to stop patient will have to lie flat until 1900. F/U US ordered in the AM-Dr. Dumont was reconsulted today for PVD. VSS T/O the shift. No other acute changes, will report to oncoming RN.
--- NOTE | 2023-09-26 21:05 | NUR ---
PT ALERT AND ORIENTED X 4, COOPERATIVE WITH CARE AND ABLE TO MAKE NEEDS KNOWN, PT IS SOFT SPOKEN. HIS LUNG SOUNDS ARE COARSE THROUGHOUT, 02 SATURATION ABOVE 92% ON 2L NC, PT DENIES SOB. HR AFLUTTER 110'S-120'S, BP 124/78 , PT DENIES CHEST PAIN/PRESSURE/DIZZINESS. PT HAS BRUISING TO R GROIN THAT GOES DOWN HIS LEG A LITTLE FROM PSEUDO ANEURYSM, SEE PREVIOUS NOTES FROM PRIOR SHIFTS, PT DENIES PAIN TO THE AREA. PT DOES COMPLAIN OF PAIN TO BLE, MEDICATED PER EMAR. PT USES URINAL INDEPENDENTLY. IV TO L FOREARM PATENT, FLUSHED, AND SALINE LOCKED. PT ON FLUID RESTRICTION. PT ASKED FOR ICE WATER AT BEGINNING OF SHIFT, EXPLAINED TO PT THAT CUP OF WATER IS ALL HE CAN HAVE UNTIL 6AM AND EDUCATED TO DRINK SLOWLY, PT STATED UNDERSTANDING. PT IS RESTING IN BED AND WATCHING TV WITH CALL LIGHT WITHIN REACH.
[2023-09-27] VITALS (9 sets, daily range): BP systolic 98–126; BP diastolic 65–90
--- NOTE | 2023-09-27 02:44 | NUR ---
INCREASED SWELLING TO R GROIN SITE. REASSESSED R GROIN SITE AND INCREASED SIZE, SKIN MAKER PLACED AROUND SITE BY Jojo STALEY RN. SAND BAG PLACED #5. PEDAL PULSES DOPPLERED, SLIGHTLY INCREASED EDEMA WELL. DR. MORALES INFORMED, ENSURE DR. ODOM IS AWARE IN THE AM, AND KEEP THE PRESSURE, PLUS REINFORM HIM IF INCREASED PAIN. PATIENT TOLERATING THE SAND BAG WELL, AND COOPERATIVE WITH CARE. PATIENT ENDUCATED. SLOTTER OPERATOR EYES ON AND INFORMED OF SITUATION.
--- NOTE | 2023-09-27 04:22 | NUR ---
SHIFT SUMMARY PT CONTINUES TO BE ALERT AND ORIENTED X 4, COOPERATIVE WITH CARE AND ABLE TO MAKE NEED KNOWN. PT MAINTAING O2 SATURATION ABOVE 92% ON RA, HE DENIES SOB. HR 90'S-100'S, BP OF 118/84, PT DENIES CHEST PAIN/PRESSURE. PT USES URINAL INDEPENDENTLY. SEE NOTE FROM [facility] REGARDING CHANGE IN PT STATUS OF R GROIN SITE AND R LEG, NO ACUTE CHANGES SINCE. BRUISING HAS MOVED JUST OUTSIDE THE LINE DRAWN SINCE THE SAND BAG #5 WAS PLACED, MOST LIKELY DUE TO PRESSURE OF SAND BAG, PT SAID SITE IS A LITTLE SORE. HOURLY BP BEING TAKEN PT'S HR AND RHYTHM BEING MONITORED CONTINUOUSLY VIA TELE, CHECKING SITE AND ASSESSING PT HOURLY. PT IS RESTING IN BED AND WATCHING TV, CALL LIGHT WITHIN REACH.
[2023-09-27 07:30] LABS: BASOPHILS PERCENT AUTO 0 % (0-2); EOSINOPHILS ABSOLUTE AUTO 0.02 K/mm3 (0.00-0.68); EOSINOPHILS PERCENT AUTO 0 % (0-6); Hematocrit 40.6 % (37.0-53.0); Hemoglobin 12.2 g/dL (13.5-17.5); IMMATURE GRAN ABSOLUTE AUTO 0.03 K/mm3 (0.00-0.10); IMMATURE GRAN PERCENT AUTO 0 % (0-1); LYMPHOCYTES ABSOLUTE AUTO 0.95 K/mm3 (0.84-5.20); LYMPHOCYTES PERCENT AUTO 11 % (21-46); MONOCYTES ABSOLUTE AUTO 1.08 K/mm3 (0.16-1.47); MONOCYTES PERCENT AUTO 12 % (4-13); Mean Corpuscular HGB 27.5 pg (26.0-34.0); Mean Corpuscular Volume 92 fL (80-100); Mean Platelet Volume 10.9 fL (9.1-12.4); NEUTROPHILS ABSOLUTE AUTO 6.75 K/mm3 (1.96-9.15); NEUTROPHILS PERCENT AUTO 77 % (41-73); Platelet Count 117 K/mm3 (150-400); RDW Coefficient Variation 18.9 % (11.7-14.2); RDW Standard Deviation 62.9 fL (35.1-46.3); Red Blood Cell Count 4.43 M/mm3 (4.30-5.90); White Blood Cell Count 8.83 K/mm3 (4.00-11.30)
[2023-09-27 07:55] LABS: Albumin, Blood 3.2 g/dL (3.4-5.0); Albumin/Globulin Ratio 0.9 (0.8-1.8); Bilirubin, Total 0.6 mg/dL (0.1-1.0); Bun/Creatinine Ratio 46.7 (12.0-20.0); Calcium, Blood 8.9 mg/dL (8.5-10.1); Creatinine, Blood 0.99 mg/dL (0.60-1.20); Globulin, Blood 3.7 g/dL (2.2-4.0); Potassium, Blood 5.1 mmol/L (3.5-5.5); Total Protein, Blood 6.9 g/dL (6.4-8.2)
--- NOTE | 2023-09-27 17:54 | NUR ---
SHIFT SUMMARY; ASSUMED CARE AT 0700. RIGHT GROIN BRUISED AREA OUTLINED BY PREVIOUS RN. NO SWELLING OR SIGNS OF BLEEDING NOTED. PEDAL PULSE TO RIGHT FOOT VIA DOPPLER. REPEAT US ON RIGHT ILLIAC. NO BLEEDING PER US, WILL CONTINUE TO MONITOR. REPOSITIONS SELF NEEDED, 1 PERSON ASSIT TO RECLINER IN EVENING FOR DINNER, 2L O2 VIA NC. POSSIBLE DC TOMORROW PER HOSPITALIST. VSS, WILL CONTINUE TO MONITOR AND TREAT UNTIL CHANGE OF SHIFT.
--- NOTE | 2023-09-27 21:45 | NUR ---
ASSUMPTION OF CARE THIS RN ASSUMED CARE AT APPROX 1915. PATIENT IS ALERT AND ORIENTED X4. IS [place]. SOFT SPEECH NOTED, IS ABLE TO COMMUNICATE NEEDS EFFECTIVELY. COOPERATIVE WITH CARE. FLAT AFFECT NOTED. VSS. TELEMETRY SHOWING AFLUTTER 100's. BP STABLE. DENIES CHEST PAIN OR PRESSURE. LARGE HEMATOMA FROM PREVIOUS PROCEDURE TO R GROIN, IS SOFT. NO SWELLING NOTED. PEDAL PULSES AUSCULTATED BY DOPPLER. BLE COOL TO TOUCH. SOME MOTTLING NOTED WELL. REPORTS NUMBNESS/TINGLING TO BLE, MANAGING PAIN PER EMAR. IS ON BASELINE 2L VIA NASAL CANNULA, SATS >90%. USING URINAL AT BEDSIDE TO VOID. IS A 1P ASSIST WITH FWW WITH AMBULATION. CALL LIGHT IN REACH.
[2023-09-28 03:38] VITALS: BP 104/71
--- NOTE | 2023-09-28 04:13 | NUR ---
SHIFT SUMMARY NO ACUTE CHANGES SINCE ASSUMPTION OF CARE NOTE. PATIENT SLEPT THROUGHOUT, EASILY AROUSABLE TO VERBAL STIMULI. ABLE TO REPOSITION HIMSELF IN BED. USES URINAL INDEPENDENTLY, VOIDING. NO BM THIS SHIFT. VS REMAIN STABLE. REMAINS ON 2L VIA NASAL CANNULA, SATS >90%. REPORTS 7/10 BLE BURNING/SHARP/TINGLING PAIN. MANAGING PER EMAR. NO CHANGES TO R GROIN HEMATOMA. IS CURRENTLY WATCHING TV IN ROOM. CALL LIGHT IN REACH. WILL REPORT TO ONCOMING RN.
[2023-09-28 07:25] VITALS: BP 102/67
[2023-09-28 07:42] LABS: Albumin, Blood 3.1 g/dL (3.4-5.0); Albumin/Globulin Ratio 0.9 (0.8-1.8); Bilirubin, Total 0.7 mg/dL (0.1-1.0); Bun/Creatinine Ratio 71.5 (12.0-20.0); Calcium, Blood 8.7 mg/dL (8.5-10.1); Creatinine, Blood 0.64 mg/dL (0.60-1.20); Globulin, Blood 3.6 g/dL (2.2-4.0); Potassium, Blood 4.4 mmol/L (3.5-5.5); Total Protein, Blood 6.7 g/dL (6.4-8.2)
[2023-09-28 11:26] VITALS: BP 90/59
[2023-09-28] MEDS ORDERED: ATOR80 PO (12:47)
[2023-09-28] MEDS ORDERED: ELIQUIS5 M2 PO (12:47)
[2023-09-28] MEDS ORDERED: AZIT250 PO (12:48)
[2023-09-28] MEDS ORDERED: VISBIOME 112.51 EACH PO (12:48)
[2023-09-28] MEDS ORDERED: Pulmicort Fle180 MCG INH (12:49)
[2023-09-28] MEDS ORDERED: PREG50 PO (13:35)
--- NOTE | 2023-09-28 13:56 | NUR ---
DISCHARGE HOME W/ HH PT A&O X4. VSS. MONITOR SHOWING SR, HR 80s, THEN CONVERT BACK TO AFLUTTER THIS AM, HR 110s-120. AWARE. SPO2 > 92% ON 2L NC, TITRATED TO RA. PT ALREADY W/ HOME O2 FOR NOC USE. PT REPORTING READINESS TO DISCHARGE HOME. PT REPORTING NO RIDE AVAILABLE TO PICK HIM UP FROM HOSPITAL. [facility] CALLED FOR PT. DISCHARGE INSTRUCTIONS REVIEWED W/ PT & SENT HOME W/ PT. PIVs REMOVED WNL. PT TAKEN OUT BY PCT IN WHEELCHAIR W/ BELONGINGS @ APPROX 1400.
== END 2023-09-28 14:05 | disposition home health service (06) | DRG 853 ==
LOC: ER 13:10 → PCU 18:28
PROVIDERS: Emergency Medicine; Family Medicine; Physician Assistant; ADMIT Internal Medicine
PROC: 5A09357 Assistance with Respiratory Ventilation, Less than 24 Consecutive Hours, Continuous Positive Airway Pressure (ICD-10-PCS; 2023-09-23)
PROC: 04L Lower Arteries, Occlusion (ICD-10-PCS; principal; 2023-09-26)
DX: A41.9 Sepsis, unspecified organism (principal); I50.23 Acute on chronic systolic (congestive) heart failure; J96.21 Acute and chronic respiratory failure with hypoxia; J96.22 Acute and chronic respiratory failure with hypercapnia; J44.1 Chronic obstructive pulmonary disease with (acute) exacerbation; I48.92 Unspecified atrial flutter; T81.719A Complication of unspecified artery following a procedure, not elsewhere classified, initial encounter; L03.116 Cellulitis of left lower limb; L03.115 Cellulitis of right lower limb; R64 Cachexia; I11.0 Hypertensive heart disease with heart failure; L97.529 Non-pressure chronic ulcer of other part of left foot with unspecified severity; I70.202 Unspecified atherosclerosis of native arteries of extremities, left leg; I48.0 Paroxysmal atrial fibrillation; L97.519 Non-pressure chronic ulcer of other part of right foot with unspecified severity; F17.210 Nicotine dependence, cigarettes, uncomplicated; Z79.811 Long term (current) use of aromatase inhibitors; Z79.899 Other long term (current) drug therapy; Z90.2 Acquired absence of lung [part of]; Z79.82 Long term (current) use of aspirin; Z91.148 Patient's other noncompliance with medication regimen for other reason; Z99.81 Dependence on supplemental oxygen; Z11.52 Encounter for screening for COVID-19; Z68.21 Body mass index [BMI] 21.0-21.9, adult
CPT/HCPCS: 0241U; 36415; 71046; 76882; 76936; 76937; 80053; 80162; 82803; 83605; 83735; 83880; 84443; 85025; 87040; 93005; 93010; 93925; 94640; 94660; 94664; 94760; 94762; 96374; 96375; 97116; 97162; 97166; 97535; 99285-25; A9270; C1876; C1887; C1894; J0456; J0696; J1160; J1644; J1650; J1940; J2930; J7030; J7050; J7512; Q9967

== ENCOUNTER 2023-10-01 16:25 | Inpatient (IN) | payer OTHER ==
[~2023-10-01] VITALS: Ht 160 cm; Wt 61.2 kg
[~2023-10-01 16:25] MED LIST changes: +ATOR80 PO; +AZIT250 PO; +Aspir 8181 MG PO; +ELIQUIS5 M2 PO; +PREG50 PO; +Pulmicort Fle180 MCG INH; +VISBIOME 112.51 EACH PO
[2023-10-01 17:07] LABS: Albumin/Globulin Ratio 0.8 (0.8-1.8); BASOPHILS ABSOLUTE AUTO 0.01 K/mm3 (0.00-0.23); BASOPHILS PERCENT AUTO 0 % (0-2); Bilirubin, Total 1.3 mg/dL (0.1-1.0); Bun/Creatinine Ratio 31.4 (12.0-20.0); Calcium, Blood 8.6 mg/dL (8.5-10.1); Creatinine, Blood 0.64 mg/dL (0.60-1.20); EOSINOPHILS ABSOLUTE AUTO 0.08 K/mm3 (0.00-0.68); EOSINOPHILS PERCENT AUTO 1 % (0-6); Globulin, Blood 3.7 g/dL (2.2-4.0); Hemoglobin 11.4 g/dL (13.5-17.5); IMMATURE GRAN ABSOLUTE AUTO 0.03 K/mm3 (0.00-0.10); IMMATURE GRAN PERCENT AUTO 0 % (0-1); LYMPHOCYTES ABSOLUTE AUTO 0.49 K/mm3 (0.84-5.20); LYMPHOCYTES PERCENT AUTO 7 % (21-46); MONOCYTES ABSOLUTE AUTO 0.93 K/mm3 (0.16-1.47); MONOCYTES PERCENT AUTO 12 % (4-13); Mean Corpuscular HGB 27.5 pg (26.0-34.0); Mean Corpuscular HGB Conc 30.8 g/dL (31.5-36.5); Mean Corpuscular Volume 89 fL (80-100); Mean Platelet Volume 10.3 fL (9.1-12.4); NEUTROPHILS ABSOLUTE AUTO 5.98 K/mm3 (1.96-9.15); NEUTROPHILS PERCENT AUTO 80 % (41-73); Platelet Count 128 K/mm3 (150-400); Potassium, Blood 3.4 mmol/L (3.5-5.5); RDW Coefficient Variation 19.2 % (11.7-14.2); RDW Standard Deviation 61.9 fL (35.1-46.3); Red Blood Cell Count 4.14 M/mm3 (4.30-5.90); Total Protein, Blood 6.7 g/dL (6.4-8.2); White Blood Cell Count 7.52 K/mm3 (4.00-11.30)
[2023-10-01 22:45] LABS: Base Excess Venous 9.1 mmol/L; Bicarbonate Venous 30.8 mmol/L (24.0-30.0); PCO2 Venous 56.1 mmHg (38-42); pH Blood Venous 7.39 (7.34-7.37)
[2023-10-02 03:38] LABS: Digoxin (Lanoxin) 0.51 ug/mL (0.80-2.00)
[2023-10-02 05:47] LABS: Hematocrit 34.4 % (37.0-53.0); Hemoglobin 10.5 g/dL (13.5-17.5); Mean Corpuscular HGB 27.5 pg (26.0-34.0); Mean Corpuscular HGB Conc 30.5 g/dL (31.5-36.5); Mean Corpuscular Volume 90 fL (80-100); Mean Platelet Volume 11.3 fL (9.1-12.4); Platelet Count 114 K/mm3 (150-400); RDW Coefficient Variation 19.5 % (11.7-14.2); RDW Standard Deviation 63.2 fL (35.1-46.3); Red Blood Cell Count 3.82 M/mm3 (4.30-5.90); White Blood Cell Count 7.96 K/mm3 (4.00-11.30)
[2023-10-02 06:38] LABS: Bun/Creatinine Ratio 40.8 (12.0-20.0); Calcium, Blood 8.3 mg/dL (8.5-10.1); Creatinine, Blood 0.49 mg/dL (0.60-1.20); Potassium, Blood 3.8 mmol/L (3.5-5.5)
[2023-10-02 08:00] VITALS: BP 108/74
[2023-10-02 11:25] VITALS: BP 103/72
[2023-10-02 16:00] VITALS: BP 98/65
--- NOTE | 2023-10-02 16:40 | NUR ---
PT ARRIVED FROM ER THIS MORNING WITH AFIB, HEART RATE IN THE 120s UPON ARRIVAL. HE IS ALERT, HIS SPEECH IS VERY DIFFICULT TO UNDERSTAND WHICH HE STATES IS HIS BASELINE. VSS T/O THE SHIFT, HE DENIES CHEST PAIN, DENIES ANY INCREASE IN WORK OF BREATHING. HE HAS A VERY WET SOUNDING COUGH THAT IS NON-PRODUCTIVE, HE HAS A HX OF LEFT LOWER LOBECTOMY. HIS LUNGS ARE NOTED TO HAVE COARSE CRACKLES T/O. BLE WITH 2-3+ EDEMA, WITH FAINT PULSES, FEET AND LEGS ARE VARIED RED AND DUSKY BLUE IN COLOR, PEDAL PULSES ARE PRESENT BUT FAINT BILAT. HEART SOUNDS ARE CLEAR, S1, S2 NOTED. HE USES CALL LIGHT APPROPRIATELY, HE IS ABLE TO MAKE NEEDS KNOWN. HE IS PLACED ON VENTI MASK NASAL CANNULA DOES NOT STAY WITHIN HIS NARES WELL, HE HAS REMAINED ON 4L VENTI MASK SINCE ARRIVAL WHICH IS TOLERATED WELL. HE IS VERY THIN, HE HAS A GOOD APPETITE UPON ARRIVAL. HE IS ABLE TO TAKE MEDS WELL WITH WATER.
[2023-10-02 20:20] VITALS: BP 92/59
[2023-10-02 23:13] VITALS: BP 91/76
[2023-10-03] VITALS (7 sets, daily range): BP systolic 98–108; BP diastolic 58–74
[2023-10-03 04:55] LABS: Bun/Creatinine Ratio 35.9 (12.0-20.0); Calcium, Blood 8.4 mg/dL (8.5-10.1); Creatinine, Blood 0.61 mg/dL (0.60-1.20); Potassium, Blood 4.1 mmol/L (3.5-5.5)
--- NOTE | 2023-10-03 06:49 | NUR ---
SUMMARY PT HAS BEEN RESTING AND HAD NO COMPLAINTS. PT HAS BEEN BREATHING WELL WITH A OXY/MASK @ 4LPM. PT HAS BEEN VOIDING VIA URINAL. PT HAS BEEN DRINKING PO FLUIDS. THIS AM PT HAD SOME NOTED NOSE BLEED. HUMIDIFIED O2 WAS ADDED. PT TURNDS AELF IN BED WELL. PT HAS BEEN GETTING SCHEDULED BREATHING TX'S. CALL LIGHT IN REACH.
--- NOTE | 2023-10-03 09:00 | NUR ---
care assumption this rn assumed care at 0700. vital signs stable. patient converted from aflutter to sinus at 0736. tele currently sinus rhythm 90. patient is on 4l via mask. spo2 >90%. patient is alert and oriented x4. perrla. patient reports no pain, chest pain/pressure or shortness of breath. patient has significant bruising on right leg and scrotum where hernia is located at. patient states it is from a surgery he had here at last hospital stay. see shift assessment for further detials. this rn spoke with md esparza this morning and held morning aldactone due to blood pressure not beign within parameters, agreed with this plan. patient is sitting in the bed currently eating breakfast with call light within reach.
--- NOTE | 2023-10-03 09:15 | NUR ---
MD IN ROOM MD Pierce in room and discussing plan of care. patient understands plan of care. at this time to continue medication regimen and for patient to get up to chair for meals and to walk around the unit to see how patient breathing and heart rate handles it.
--- NOTE | 2023-10-03 13:38 | NUR ---
Upon receiving a referral for spiritual care, I visited the patient. He immediately voices his frustration about his frequent visits to the hospital and his hopes of getting to return home soon. He shares about the importance of his flynn and that it keeps him going. He asks about the baptism I attend and wonders if he could visit the baptism sometime and I, of course, state that he would be welcome. I normalize his experience, reinforce helpful attitudes and practices and provide therapeutic listening and prayer. Patient responded well and showed signs of increased hope. I will continue to remain available to patient and family.
--- NOTE | 2023-10-03 17:27 | NUR ---
shift summary patient neuro remains intact. vitals signs stable. patient is able to make needs known and uses call light appropriately. patient got up and walked around the unit today and tolerated this well. patient sat in chair majority of the day and got back into bed before dinner this evening. no acute changes this shift. this rn spoke with pharmacy today about finding a medical regimen that works for the patient. eliquis is too expensive and patient stated he couldn't afford the $45 co-pay once deductible is met. this rn educated the importance of being on anticoag due to patient having afib and coming in and out of. patient verbalized understanding. the option for warfarin was discussed with this rn from pharmacy and this could be an option if patient is able to get rids for lab work done. this rn discussed this with the patient and patient said he does not drive, but could possibly arrange rides and try this method for medical compliance. this rn will inform night rn to pass along for continued follow up with tomorrow day nurse, animal care attendant and pharmacist.
--- NOTE | 2023-10-03 21:49 | NUR ---
UPDATE THIS RN INTO COMPLETE 2000 VS AND 2100 MEDICATIONS; PT BP 105/62 (MAP 70) AND HRR SR W/RATE IN 80'S. THIS RN CALLED RESIDENT TO DISCUSS SOFT BP AND 2100 DOSING OF METOPROLOL TO CLARIFY IF SHOULD BE ADMINISTERED AND CLAFIFY HOLDING PARAMETERS. RESIDENT OKAY'D TO GIVE 2100 DOSE. THIS RN ALSO NOTIFIED RESIDENT OF PT HAVING BLOODY NOSES D/T O2 AND DRYING NASAL PASSAGES. THIS RN ASKED IF RESIDENT WANTED 2100 ELOQUIS HELD FOR ABOVE REASON. RESIDENT OKAY'D TO ADMINISTER.
--- NOTE | 2023-10-03 22:20 | NUR ---
ASSUMPTION OF CARE THIS RN ASSUMED CARE AT 1900, REPORT FROM KING DIAS. PT RESTING IN ROOM AT THIS TIME. PT ABLE TO BE AWAKENED WHILE IN ROOM FOR BEDSIDE SHIFT REPORT, PT A&O X3. VSS; PT ON 2 LPM O2, HRR SR W/RATE OF 87, SBP 105. PT DENIES CP OR PRESSURE, DENIES DIZZINESS, PALPITATIONS OR SOB. PT HAS A COUGH THAT SOUNDS LOOSE AND MOIST, PT DENIES ANY SPUTUM PRODUCTION AT THIS TIME. LS COARSE AND DIMINISHED IN BASES. PT DENIES ANY ISSUES RELATED TO GI/ AT THIS TIME. PT USING URINAL INDEPENDENTLY AT BEDSIDE. PT HAVING BLOODY NOSES ON AND OFF D/T OXYGEN. PT HAD A BLOODY NOSE SHORTLY AFTER SHIFT CHANGE, THIS RN AND POST FRAMER ASSISTED TO CLEAN PT UP. NOSE BLEED LASTED AROUND 10 - 15 MINS, PT STATES THIS DOES NOT HAPPEN AT HOME AND HE DOES NOT HAVE HX OF NOSE BLEEDS. PT BEING TRANSFERRED TO MEDICAL FLOOR, REPORT TO ELENA DIAS. PT LEFT VIA HOSPITAL BED ON 2 LPM NC. PT BELONGINGS SENT WITH PT.
[2023-10-04 03:28] VITALS: BP 96/72
--- NOTE | 2023-10-04 04:41 | NUR ---
SHIFT SUMMARY LEVY WAS TRANSFERRED TO MY CARE AT 2236. HE WAS ALERT AND FULLY ORIENTED AT TIME OF TRANSFER. PT COOPERATIVE WITH CARE AND PLEASANT. HE IS CURRENTLY ON 2L NC VIA OXY MASK AND SATTING IN THE 90'S. PT DENIES C/P/PRESSURE AND SOB WHILE AT REST. PT HAS EXTENSIVE BRUISING IN GROIN AND PROXIMAL RUE. PT HAD NO ACUTE EVENTS TONIGHT AND NO COMPLAINTS. HE IS CURRENTLY SLEEPING IN BED IN A LOWERED POSITION WITH THE CALL LIGHT IN REACH.
[2023-10-04 07:55] VITALS: BP 111/69
[2023-10-04 08:41] LABS: Bun/Creatinine Ratio 43.8 (12.0-20.0); Calcium, Blood 8.1 mg/dL (8.5-10.1); Creatinine, Blood 0.78 mg/dL (0.60-1.20); Magnesium, Blood 1.7 mg/dL (1.6-2.4); Potassium, Blood 4.3 mmol/L (3.5-5.5)
[2023-10-04 15:51] VITALS: BP 107/66
--- NOTE | 2023-10-04 17:56 | NUR ---
SUMMARY- AAOX3-DISORIENTED TO TIME. X1 ASSIST TO BATHROOM WITH WALKER. CALM AND COOPERATIVE THIS SHIFT. NO ACUTE EVENTS THIS SHIFT. PT ON 2 L OXY MASK THIS SHIFT.
[2023-10-04 20:38] VITALS: BP 129/112
[2023-10-05 03:52] VITALS: BP 97/70
--- NOTE | 2023-10-05 05:00 | NUR ---
shift summary 65 yr m admitted on 10/02/23 for copd exacerbation. full code. no acute changes this shift. pt requested to use a nasal canula rather than an oximizer mask. sats have remained wnl w/ nc. pt has been independantly using bedside urinal. he is pleasant and cooperative with care. per radiotelephone technical operator, hr has been sinus rythm in the upper 70's.
[2023-10-05 06:02] LABS: BASOPHILS ABSOLUTE AUTO 0.02 K/mm3 (0.00-0.23); BASOPHILS PERCENT AUTO 0 % (0-2); EOSINOPHILS PERCENT AUTO 3 % (0-6); Hematocrit 29.9 % (37.0-53.0); Hemoglobin 9.3 g/dL (13.5-17.5); IMMATURE GRAN ABSOLUTE AUTO 0.04 K/mm3 (0.00-0.10); IMMATURE GRAN PERCENT AUTO 1 % (0-1); LYMPHOCYTES ABSOLUTE AUTO 0.69 K/mm3 (0.84-5.20); LYMPHOCYTES PERCENT AUTO 9 % (21-46); MONOCYTES ABSOLUTE AUTO 1.15 K/mm3 (0.16-1.47); MONOCYTES PERCENT AUTO 16 % (4-13); Mean Corpuscular HGB 27.8 pg (26.0-34.0); Mean Corpuscular HGB Conc 31.1 g/dL (31.5-36.5); Mean Corpuscular Volume 89 fL (80-100); Mean Platelet Volume 9.8 fL (9.1-12.4); NEUTROPHILS ABSOLUTE AUTO 5.33 K/mm3 (1.96-9.15); NEUTROPHILS PERCENT AUTO 72 % (41-73); Platelet Count 123 K/mm3 (150-400); RDW Coefficient Variation 18.7 % (11.7-14.2); RDW Standard Deviation 61.3 fL (35.1-46.3); Red Blood Cell Count 3.35 M/mm3 (4.30-5.90); White Blood Cell Count 7.43 K/mm3 (4.00-11.30)
[2023-10-05 06:25] LABS: Albumin, Blood 2.4 g/dL (3.4-5.0); Anion Gap 2 mmol/L (6-16); Blood Urea Nitrogen 37 mg/dL (8-24); Bun/Creatinine Ratio 58.9 (12.0-20.0); CO2, Blood 34 mmol/L (21-32); Calcium, Blood 8.2 mg/dL (8.5-10.1); Chloride, Blood 102 mmol/L (98-108); Creatinine, Blood 0.63 mg/dL (0.60-1.20); Glomerular Filtration Rate 107 (60-); Glucose, Blood 140 mg/dL (70-99); Phosphorus, Blood 2.9 mg/dL (2.5-4.9); Potassium, Blood 3.9 mmol/L (3.5-5.5); Sodium, Blood 138 mmol/L (136-145)
[2023-10-05 07:41] VITALS: BP 109/67
--- NOTE | 2023-10-05 16:14 | NUR ---
BROTHER PT BROTHER HERE. HE CONFIRMED THAT PT WILL BE COMING HOME WITH HIM. FAMILY HAS REMOVED MEDCIATIONS, OXUGEN CONSENTRATOR AND CLOTHING FOR HIM. WILL CALL BROTHER AT WORK WHEN DISCHARGE READY. CONTINUE POC.
[2023-10-05 16:18] VITALS: BP 141/124
[2023-10-05 20:01] VITALS: BP 89/53
[2023-10-05 21:21] VITALS: BP 90/64
[2023-10-06 04:08] VITALS: BP 91/54
[2023-10-06 06:00] LABS: BASOPHILS ABSOLUTE AUTO 0.03 K/mm3 (0.00-0.23); BASOPHILS PERCENT AUTO 0 % (0-2); EOSINOPHILS ABSOLUTE AUTO 0.19 K/mm3 (0.00-0.68); EOSINOPHILS PERCENT AUTO 3 % (0-6); Hematocrit 29.5 % (37.0-53.0); Hemoglobin 8.9 g/dL (13.5-17.5); IMMATURE GRAN ABSOLUTE AUTO 0.03 K/mm3 (0.00-0.10); IMMATURE GRAN PERCENT AUTO 0 % (0-1); LYMPHOCYTES ABSOLUTE AUTO 0.95 K/mm3 (0.84-5.20); LYMPHOCYTES PERCENT AUTO 14 % (21-46); MONOCYTES ABSOLUTE AUTO 0.99 K/mm3 (0.16-1.47); MONOCYTES PERCENT AUTO 14 % (4-13); Mean Corpuscular HGB 27.2 pg (26.0-34.0); Mean Corpuscular HGB Conc 30.2 g/dL (31.5-36.5); Mean Corpuscular Volume 90 fL (80-100); Mean Platelet Volume 10.1 fL (9.1-12.4); NEUTROPHILS ABSOLUTE AUTO 4.78 K/mm3 (1.96-9.15); NEUTROPHILS PERCENT AUTO 69 % (41-73); Platelet Count 137 K/mm3 (150-400); RDW Coefficient Variation 18.8 % (11.7-14.2); RDW Standard Deviation 62.8 fL (35.1-46.3); Red Blood Cell Count 3.27 M/mm3 (4.30-5.90); White Blood Cell Count 6.97 K/mm3 (4.00-11.30)
[2023-10-06 06:19] LABS: Bun/Creatinine Ratio 60.9 (12.0-20.0); Calcium, Blood 8.4 mg/dL (8.5-10.1); Creatinine, Blood 0.64 mg/dL (0.60-1.20)
[2023-10-06 07:47] VITALS: BP 99/63
--- NOTE | 2023-10-06 08:34 | NUR ---
RECEIVED A CALL FROM [email or web address] AT 0545 TO SEE IF I WAS MADE AWARE OF TWO DIFFERENT EVENTS OVERNIGHT. PT HAD A 5 BEAT RUN OF VTACH AT 2332 AND AT 0140 HAD 5 SECONDS OF SVT. I WAS NOT CALLED AND NOTIFED OF THESE EVENTS AT THE TIME THEY OCCURRED. SPOKE TO BOTH CHARGE NURESES WHO ALSO WERE NOT MADE AWARE. PER YUNIER THE PCU MONITOR I SPOKE TO SHE CAME ON SHIFT AT 0400 AND PRINTED HER REPORTS AND CALLED ME AT 0545.
[2023-10-06] MEDS ORDERED: DULO60 PO (12:29)
--- NOTE | 2023-10-06 13:33 | NUR ---
Spiritual care visit conducted. Patient voices his frustration about being "stuck" in the hospital and with what is happening with him medically. I provide therapeutic listening and prayer. Patient responded well and stated, "God bless you" several times to me on my way out of the . I will continue to remain available to patient and family.
== END 2023-10-06 17:04 | disposition home health service (06) | DRG 308 ==
LOC: ER 16:25 → ERHOLD 16:26 → PCU 10-02 07:47 → MEDS 10-02 11:56 → PCU 10-02 11:56 → MEDS 10-03 22:36 → ENPENDDIS 10-05 13:33 → MEDS 10-06 17:04
PROVIDERS: Family Medicine; Internal Medicine; Physician Assistant; Student in an Organized Health Care Education/Training Program; ADMIT Student in an Organized Health Care Education/Training Program
DX: I48.0 Paroxysmal atrial fibrillation (principal); I50.23 Acute on chronic systolic (congestive) heart failure; J96.11 Chronic respiratory failure with hypoxia; I11.0 Hypertensive heart disease with heart failure; I47.20 Ventricular tachycardia, unspecified; J44.9 Chronic obstructive pulmonary disease, unspecified; E11.42 Type 2 diabetes mellitus with diabetic polyneuropathy; E87.6 Hypokalemia; E11.51 Type 2 diabetes mellitus with diabetic peripheral angiopathy without gangrene; F17.210 Nicotine dependence, cigarettes, uncomplicated; Z98.890 Other specified postprocedural states; Z79.899 Other long term (current) drug therapy; Z79.51 Long term (current) use of inhaled steroids; Z79.01 Long term (current) use of anticoagulants; Z79.82 Long term (current) use of aspirin; Z79.2 Long term (current) use of antibiotics
CPT/HCPCS: 36415; 71046; 76882; 80048; 80053; 80069; 80162; 82803; 83605; 83690; 83735; 83880; 84484; 85025; 85027; 87040; 93005; 93010; 94640; 94664; 94760; 94762; 96374; 96375; 96376; 97110; 97116; 97162; 97165; 97530; 97535; 99285-25; A9270; G0378; J1940

== ENCOUNTER 2023-11-16 19:40 | Emergency (ER) | payer OTHER ==
[~2023-11-16] VITALS: Ht 172.7 cm; Wt 63.5 kg
[~2023-11-16 19:40] MED LIST changes: +DULO60 PO
[2023-11-17] VITALS: BP 104/64
[2023-11-17 00:20] LABS: BASOPHILS ABSOLUTE AUTO 0.08 K/mm3 (0.00-0.23); BASOPHILS PERCENT AUTO 1 % (0-2); EOSINOPHILS ABSOLUTE AUTO 0.16 K/mm3 (0.00-0.68); EOSINOPHILS PERCENT AUTO 2 % (0-6); Hematocrit 32.9 % (37.0-53.0); Hemoglobin 9.9 g/dL (13.5-17.5); IMMATURE GRAN ABSOLUTE AUTO 0.02 K/mm3 (0.00-0.10); IMMATURE GRAN PERCENT AUTO 0 % (0-1); LYMPHOCYTES ABSOLUTE AUTO 0.63 K/mm3 (0.84-5.20); LYMPHOCYTES PERCENT AUTO 6 % (21-46); MONOCYTES ABSOLUTE AUTO 0.77 K/mm3 (0.16-1.47); MONOCYTES PERCENT AUTO 7 % (4-13); Mean Corpuscular HGB 25.6 pg (26.0-34.0); Mean Corpuscular HGB Conc 30.1 g/dL (31.5-36.5); Mean Corpuscular Volume 85 fL (80-100); Mean Platelet Volume 9.4 fL (9.1-12.4); NEUTROPHILS ABSOLUTE AUTO 9.07 K/mm3 (1.96-9.15); NEUTROPHILS PERCENT AUTO 85 % (41-73); Platelet Count 260 K/mm3 (150-400); RDW Coefficient Variation 17.2 % (11.7-14.2); RDW Standard Deviation 53.1 fL (35.1-46.3); Red Blood Cell Count 3.87 M/mm3 (4.30-5.90); White Blood Cell Count 10.73 K/mm3 (4.00-11.30)
[2023-11-17 00:48] LABS: Albumin, Blood 3.1 g/dL (3.4-5.0); Albumin/Globulin Ratio 0.8 (0.8-1.8); Bilirubin, Total 0.3 mg/dL (0.1-1.0); Calcium, Blood 8.9 mg/dL (8.5-10.1); Creatinine, Blood 0.54 mg/dL (0.60-1.20); Potassium, Blood 4.3 mmol/L (3.5-5.5); Total Protein, Blood 7.1 g/dL (6.4-8.2)
[2023-11-17] MEDS ORDERED: DOCU100 PO (00:58)
== END 2023-11-17 01:05 | disposition home or self-care (01) ==
LOC: ER 19:40
PROVIDERS: Emergency Medicine
DX: K40.90 Unilateral inguinal hernia, without obstruction or gangrene, not specified as recurrent (principal); J44.9 Chronic obstructive pulmonary disease, unspecified; F17.210 Nicotine dependence, cigarettes, uncomplicated; Z79.82 Long term (current) use of aspirin; Z79.01 Long term (current) use of anticoagulants; Z79.51 Long term (current) use of inhaled steroids; Z79.899 Other long term (current) drug therapy; Z99.81 Dependence on supplemental oxygen
CPT/HCPCS: 74177; 80053; 85025; 99284-25; Q9967

== ENCOUNTER 2023-12-13 07:13 | Day surgery (SDC) | payer OTHER ==
[~2023-12-13] VITALS: Ht 160 cm; Wt 54.0 kg
[2023-12-13] VITALS (8 sets, daily range): BP systolic 104–111; BP diastolic 62–74
[~2023-12-13 07:13] MED LIST changes: +DOCU100 PO; +FARXIGA5 MG PO
[2023-12-13] MEDS ORDERED: Verapamil HCL 2.5 MG/ML 2ML Injection ONE (07:37)
[2023-12-13] MEDS ORDERED: Heparin Sodium 1000 Units/ML 10ML MDV ONE (07:37)
[2023-12-13] MEDS ORDERED: NS 250 ML IV ONE (07:38)
[2023-12-13] MEDS ORDERED: NS 1,000 ML IV ONE ×2 (07:38→08:15)
[2023-12-13] MEDS ORDERED: FentaNYL Citrate 50 MCG/ML 2 ML Injection ONE (08:14)
[2023-12-13] MEDS ORDERED: Midazolam HCl 1MG / ML 2ML Vial ONE (08:15)
[2023-12-13] MEDS ORDERED: Tirofiban HCL Monohydrate 3.75 MG/15 ML Vial ONE (09:29)
[2023-12-13] MEDS ORDERED: Clopidogrel Bisulfate 300 MG Cap ONE (09:57)
[2023-12-13] MEDS ORDERED: WARF1 (11:42)
--- NOTE | 2023-12-13 13:00 | NUR ---
10CC AIR REMOVED FROM R WRIST TR BAND. NEG BLEEDING OR SWELLING. PT UP TO THE BATHROOM /S DIFFICULTY.
--- NOTE | 2023-12-13 13:49 | NUR ---
R WRIST TR BAND REMOVED. CLOTH DOT DRSG PLACED AND R WRIST SPLINT REAPPLIED. IV REMOVED. PT VERBALIZED UNDERSTANDING OF WRITTEN AND VERBAL D/C INST. PT TO BE TAKEN OUT VIA W/C.
== END 2023-12-14 00:20 | disposition home or self-care (01) ==
LOC: MHTC 07:13
DX: I25.5 Ischemic cardiomyopathy (principal); I25.10 Atherosclerotic heart disease of native coronary artery without angina pectoris; E11.51 Type 2 diabetes mellitus with diabetic peripheral angiopathy without gangrene; J44.9 Chronic obstructive pulmonary disease, unspecified; I11.0 Hypertensive heart disease with heart failure; I50.9 Heart failure, unspecified; I48.0 Paroxysmal atrial fibrillation; E78.5 Hyperlipidemia, unspecified; I95.1 Orthostatic hypotension; Z79.899 Other long term (current) drug therapy; Z87.891 Personal history of nicotine dependence
CPT/HCPCS: 76937; 85347; 93454; 99152; 99153; A9270; C1725; C1769; C1874; C1887; C1894; C9600; J1644; J2250; J3010; J3246; J7030; J7050; Q9967

== ENCOUNTER 2023-12-18 17:08 | Inpatient (IN) | payer OTHER ==
[~2023-12-18] VITALS: Ht 172.7 cm; Wt 56.7 kg
[~2023-12-18 17:08] MED LIST changes: +WARF1
[2023-12-18 17:33] LABS: BASOPHILS ABSOLUTE AUTO 0.01 K/mm3 (0.00-0.23); BASOPHILS PERCENT AUTO 0 % (0-2); EOSINOPHILS PERCENT AUTO 0 % (0-6); Hematocrit 36.8 % (37.0-53.0); Hemoglobin 10.6 g/dL (13.5-17.5); IMMATURE GRAN ABSOLUTE AUTO 0.09 K/mm3 (0.00-0.10); IMMATURE GRAN PERCENT AUTO 1 % (0-1); LYMPHOCYTES ABSOLUTE AUTO 0.41 K/mm3 (0.84-5.20); LYMPHOCYTES PERCENT AUTO 3 % (21-46); MONOCYTES ABSOLUTE AUTO 2.69 K/mm3 (0.16-1.47); MONOCYTES PERCENT AUTO 17 % (4-13); Mean Corpuscular HGB 24.4 pg (26.0-34.0); Mean Corpuscular HGB Conc 28.8 g/dL (31.5-36.5); Mean Corpuscular Volume 85 fL (80-100); Mean Platelet Volume 11.3 fL (9.1-12.4); NEUTROPHILS ABSOLUTE AUTO 12.76 K/mm3 (1.96-9.15); NEUTROPHILS PERCENT AUTO 80 % (41-73); NRBC ABSOLUTE 0.11 K/mm3 (0.00-0.02); NRBC Auto 0.7 /100 WBC (0.0-0.2); Platelet Count 247 K/mm3 (150-400); RDW Coefficient Variation 18.3 % (11.7-14.2); RDW Standard Deviation 56.3 fL (35.1-46.3); Red Blood Cell Count 4.35 M/mm3 (4.30-5.90); White Blood Cell Count 15.96 K/mm3 (4.00-11.30)
[2023-12-18 17:35] LABS: Base Excess Venous -20.2 mmol/L; Bicarbonate Venous 9.9 mmol/L (24.0-30.0); PCO2 Venous 44.8 mmHg (38-42)
[2023-12-18] MEDS ORDERED: FentaNYL Citrate 50 MCG/ML 2 ML Injection IV ONE ×2 (17:55→18:15)
[2023-12-18] MEDS ORDERED: D5W-NS 1,000 ML IV SCH (17:55)
[2023-12-18] MEDS ORDERED: Piperacillin/Tazobactam Sod 3.375 GM in NS 50 ML IV ONE (17:55)
[2023-12-18 18:03] LABS: Albumin, Blood 3.6 g/dL (3.4-5.0); Albumin/Globulin Ratio 0.9 (0.8-1.8); Bilirubin, Total 2.9 mg/dL (0.1-1.0); Bun/Creatinine Ratio 28.4 (12.0-20.0); Calcium, Blood 7.4 mg/dL (8.5-10.1); Creatinine, Blood 2.96 mg/dL (0.60-1.20); Globulin, Blood 3.8 g/dL (2.2-4.0); Potassium, Blood 5.6 mmol/L (3.5-5.5); Total Protein, Blood 7.4 g/dL (6.4-8.2)
[2023-12-18 19:14] LABS: Prothrombin Time Results 29.6 Sec (9.7-11.5)
[2023-12-18] MEDS ORDERED: Lactated Ringer's 1,000 ML IV ONE (19:25)
[2023-12-18] MEDS ORDERED: Lactated Ringer's 1,000 ML IV SCH (19:25)
[2023-12-18] MEDS ORDERED: Calcium Gluconate 10% 2,000 MG in NS 100 ML IV ONE (20:05)
[2023-12-18] MEDS ORDERED: Acetaminophen 650 MG Supp PR PRN (20:45)
[2023-12-18] MEDS ORDERED: Acetaminophen 325 MG TABLET PO PRN (20:45)
[2023-12-18] MEDS ORDERED: Naloxone HCl 0.4MG / ML 1ML Vial IV PRN (20:50)
[2023-12-18] MEDS ORDERED: FLU VACC QS2023-24(6MOS UP)/PF 60 MCG/0.5 ML SYRINGE IM ONE (20:50)
[2023-12-18] MEDS ORDERED: FentaNYL Citrate 50 MCG/ML 2 ML Injection IV PRN (20:50)
[2023-12-18] MEDS ORDERED: Lactobacil 2-S.Thermo-Bifido 1 1 Cap PO SCH (21:00)
[2023-12-18] MEDS ORDERED: Docusate Sodium 100 MG Cap PO SCH (21:00)
[2023-12-18 21:14] LABS: Magnesium, Blood 2.6 mg/dL (1.6-2.4)
[2023-12-18] MEDS ORDERED: Sodium Bicarb 8.4% Inj 150 MEQ in Dextrose 5% 1,000 ML IV SCH ×2 (21:30→23:00)
[2023-12-18 21:34] LABS: Bilirubin, Direct 1.7 mg/dL (0.0-0.3); Bilirubin, Indirect 1.2 mg/dL (0.1-0.7); Bilirubin, Total 2.9 mg/dL (0.1-1.0)
[2023-12-18 21:37] LABS: Thyroid Stimulating Hormone 0.841 uIU/mL (0.360-4.800)
[2023-12-18 21:39] LABS: Phosphorus, Blood 10.2 mg/dL (2.5-4.9)
[2023-12-18 21:39] LABS: Acetaminophen, Random <2.0 ug/mL (10.0-30.0)
[2023-12-18 21:53] LABS: Base Excess Venous -23.6 mmol/L; Bicarbonate Venous 7.7 mmol/L (24.0-30.0)
[2023-12-18 21:54] LABS: PCO2 Venous 52.6 mmHg (38-42); pH Blood Venous 6.88 (7.34-7.37)
[2023-12-18 22:32] VITALS: BP 95/83
[2023-12-18 22:35] LABS: Albumin, Blood 3.2 g/dL (3.4-5.0); Albumin/Globulin Ratio 0.9 (0.8-1.8); Bilirubin, Total 2.8 mg/dL (0.1-1.0); Bun/Creatinine Ratio 25.2 (12.0-20.0); Creatinine, Blood 3.29 mg/dL (0.60-1.20); Globulin, Blood 3.4 g/dL (2.2-4.0); Potassium, Blood 5.6 mmol/L (3.5-5.5); Total Protein, Blood 6.6 g/dL (6.4-8.2)
[2023-12-18] MEDS ORDERED: Dextrose 50% 50 ML Syringe ONE (22:39)
[2023-12-18 22:44] LABS: Ethanol (Alcohol), Blood, Med 3 mg/dL
[2023-12-18] MEDS ORDERED: Glucagon, Human Recombinant 1 MG/Vial IV ONE (22:55)
[2023-12-18] MEDS ORDERED: Hydrocortisone Sod Succinate 100 MG Vial IV ONE (23:00)
[2023-12-18 23:16] VITALS: BP 113/101
[2023-12-18 23:49] LABS: PCO2 Arterial 40.3 mmHg (35-45); PO2 Arterial 113 mmHg (80-100)
[2023-12-19] VITALS (15 sets, daily range): BP systolic 60–111; BP diastolic 46–97
[2023-12-19] LABS: Glucose, Blood 207 mg/dL (70-99)
[2023-12-19] MEDS ORDERED: Dextrose 50% 50 ML Syringe IV ONE (00:05)
[2023-12-19] MEDS ORDERED: Sodium Bicarb 8.4% 1 MEQ/ML 50 ML Vial IV ONE ×2 (00:20→04:25)
[2023-12-19 00:34] LABS: Base Excess Venous -23.3 mmol/L; Bicarbonate Venous 7.7 mmol/L (24.0-30.0); PCO2 Venous 61.3 mmHg (38-42)
[2023-12-19 00:37] LABS: pH Blood Venous 6.84 (7.34-7.37)
[2023-12-19 01:07] LABS: Albumin, Blood 3.1 g/dL (3.4-5.0); Anion Gap 18 mmol/L (6-16); Blood Urea Nitrogen 84 mg/dL (8-24); Bun/Creatinine Ratio 24.6 (12.0-20.0); CO2, Blood 15 mmol/L (21-32); Calcium, Blood 7.4 mg/dL (8.5-10.1); Chloride, Blood 100 mmol/L (98-108); Creatinine, Blood 3.42 mg/dL (0.60-1.20); Glomerular Filtration Rate 19 (60-); Glucose, Blood 182 mg/dL (70-99); Phosphorus, Blood 12.9 mg/dL (2.5-4.9); Potassium, Blood 5.7 mmol/L (3.5-5.5); Sodium, Blood 133 mmol/L (136-145)
[2023-12-19] MEDS ORDERED: Lactulose 200 GM/300 ML Enema 300ML BTL PR SCH (03:00)
[2023-12-19 03:41] LABS: Hematocrit 31.4 % (37.0-53.0); Hemoglobin 8.9 g/dL (13.5-17.5); Mean Corpuscular HGB 24.9 pg (26.0-34.0); Mean Corpuscular HGB Conc 28.3 g/dL (31.5-36.5); Mean Corpuscular Volume 88 fL (80-100); Mean Platelet Volume 11.8 fL (9.1-12.4); NRBC ABSOLUTE 0.28 K/mm3 (0.00-0.02); NRBC Auto 1.5 /100 WBC (0.0-0.2); Platelet Count 177 K/mm3 (150-400); RDW Standard Deviation 58.1 fL (35.1-46.3); Red Blood Cell Count 3.58 M/mm3 (4.30-5.90); White Blood Cell Count 19.22 K/mm3 (4.00-11.30)
[2023-12-19 03:55] LABS: Anti-Xa UFH, PHA Monitoring <0.10 IU/mL; International Normalized Ratio 3.93
[2023-12-19 03:58] LABS: BAND PERCENT MAN 3 % (0-8); BASOPHILS PERCENT MAN 0 % (0-2); EOSINOPHILS PERCENT MAN 0 % (0-6); LYMPHOCYTES ABSOLUTE MAN 1.15 K/mm3 (0.84-5.20); LYMPHOCYTES PERCENT MAN 6 % (21-46); MONOCYTES ABSOLUTE MAN 3.26 K/mm3 (0.16-1.47); MONOCYTES PERCENT MAN 17 % (4-13); NEUTROPHILS ABSOLUTE MAN 14.79 K/mm3 (1.96-9.15); SEG NEUTROPHILS PERCENT MAN 74 % (41-73); TOTAL CELLS COUNTED 100
[2023-12-19 04:01] LABS: Prothrombin Time Results 38.2 Sec (9.7-11.5)
[2023-12-19 04:12] LABS: Magnesium, Blood 2.8 mg/dL (1.6-2.4)
[2023-12-19 04:25] LABS: Bilirubin, Total 2.7 mg/dL (0.1-1.0); Bun/Creatinine Ratio 24.6 (12.0-20.0); Calcium, Blood 7.1 mg/dL (8.5-10.1); Creatinine, Blood 3.58 mg/dL (0.60-1.20); Globulin, Blood 3.1 g/dL (2.2-4.0); Phosphorus, Blood 12.8 mg/dL (2.5-4.9); Total Protein, Blood 6.1 g/dL (6.4-8.2)
[2023-12-19] MEDS ORDERED: Sodium Bicarb 8.4% Inj 150 MEQ in Dextrose 5% 1,000 ML IV SCH (04:25)
[2023-12-19] MEDS ORDERED: Scopolamine Hydrobromide Patch TOP PRN (04:50)
[2023-12-19] MEDS ORDERED: Morphine Sulfate 20 MG/1ML 1 ML Oral Syringe SL PRN (04:50)
[2023-12-19] MEDS ORDERED: LORazepam 2 MG/ML 1ML Injection IV PRN (04:50)
[2023-12-19] MEDS ORDERED: Morphine Sulfate 10 MG/ML 1MLSYR IV PRN (04:50)
[2023-12-19] MEDS ORDERED: Atropine Sulfate 1% Opth Soln 2ML BTL SL PRN (04:50)
[2023-12-19] MEDS ORDERED: Pantoprazole Sodium 40 MG Injection IV SCH (06:00)
--- NOTE | 2023-12-19 06:14 | NUR ---
Call back - Pt's brother and his spouse were at bedside. Pt looked peaceful and was non-responsive. The couple were tearful as they reflected on their loved one. Ranjit is last full blood sibling the brother has left. Other family live outside of the area. Gentle affirmation of love for his brother was extended. Verbal supplication extended and the couple voiced gratitude for interventions.
--- NOTE | 2023-12-19 07:04 | NUR ---
SHIFT SUMMARY: PT ARRIVED ON THE UNIT AT 2215. UPON ARRIVAL HE WAS CONFUSED AND AGGITATED. HE WAS PULLING AT LINES AND CORDS, UNABLE TO BE REDIRECTED. HE WAS ALSO CYANOTIC AND WITH LABORED BREATHING. HE HAD DIFFICULT TIME OBTAINING A PULSE OX OR BLOOD PRESSURE. HE WAS STARTED ON O2 AT 5L NC AND RESPIRATORY THERAPY WAS CALLED TO BEDSIDE. PT INITIALLY RESPONDED WELL TO THE O2 AND PRECEDEX. HE CONTINUED TO HAVE MOMENTS OF INTERMITTENT AGGITATION, REQUIRING A SITTER AT BEDSIDE TO MAINTAIN PT SAFETY. PT'S LACTIC ACID CONTINUED TO CLIMB AND HE DID NOT RESPOND TO TREATMENTS. PT CONTINUED TO FAIL ATTEMPTS TO OBTAIN BLOOD PRESSURE OR PULSE OX MD AWARE. AT 0330 PT CONTINUED TO DECLINE AND MD WAS CALLED TO BEDSIDE. PT HAD INCREASED WORK OF BREATHING WITH DECREASING BREATH SOUNDS. BIPAP WAS ATTEMPTED, BUT DID NOT TOLORATE. FAMILY WAS CONTACTED AND STATED THAT THE WOULD COME TO THE HOSPITAL. UPON ARRIVAL MD AND FAMILY DISCUSSED PT'S PLAN OF CARE. THE DECLINED MORE EXTENSIVE TREATMENT AND COMFORT ORDERS WERE PLACED.
--- NOTE | 2023-12-19 07:41 | NUR ---
ASSUMED CARE: PT RESTING IN BED AT THIS TIME. NO TELE, PRECEDEX GTT AT 1MCG/KG. TITRATING FOR COMFORT. PT APPEARS CALM AND COMFORTABLE. FAMILY AT BEDSIDE. NO ACUTE NEEDS OR CONCERNS AT THIS TIME.
[2023-12-19] MEDS ORDERED: Aspirin 81 MG Chew PO SCH (09:00)
[2023-12-19] MEDS ORDERED: Furosemide 10 MG / ML 2ML Vial IV SCH (09:00)
[2023-12-19] MEDS ORDERED: Piperacillin/Tazobactam Sod 3.375 GM in NS 50 ML IV SCH (09:00)
[2023-12-19] MEDS ORDERED: Clopidogrel Bisulfate 75 MG Tab PO SCH (09:00)
--- NOTE | 2023-12-19 14:00 | NUR ---
PT AT 1351. FAMILY AT BEDSIDE AND AWARE. CALL MADE TO DR MONCADA, NURSING VASCULAR TECHNICIAN, BUILDING REPAIR MAINTENANCE SUPERVISOR, DONOR LINE AND ME. AWAITING CALL BACK FROM ME AND DONOR LINE.
--- NOTE | 2023-12-19 15:02 | NUR ---
ME RETURNED CALL AND CLEARED PT FOR DISCHARGE. AWAITING CALL FROM DONOR LINE.
--- NOTE | 2023-12-19 16:30 | NUR ---
PT COLLECTED BY MORTUARY. IV SITES STILL IN PLACE PER THEIR REQUEST. FAMILY NO LONGER AT BEDSIDE.
[2023-12-21 04:19] LABS: VITAMIN D,1,25-DIHYDROXY 11.2 pg/mL (19.9-79.3)
[2023-12-21 11:18] LABS: HEPATITIS A ANTIBODY, IGM Negative (Negative); HEPATITIS B CORE ANTIBODY, IGM Negative (Negative); HEPATITIS B SURFACE ANTIGEN Negative (Negative); HEPATITIS C AB CIA INTERP Negative (Negative); HEPATITIS C ANTIBODY CIA INDEX 0.63 IV
[2023-12-24 13:13] LABS: CORTISOL, FREE BY ED/LC-MS/MS 10.86 ug/dL
== END 2023-12-19 13:51 | DRG 917 ==
LOC: ER 17:08 → ICUE 20:44
PROVIDERS: Emergency Medicine; Student in an Organized Health Care Education/Training Program; ADMIT Student in an Organized Health Care Education/Training Program
PROC: 4A033R1 Measurement of Arterial Saturation, Peripheral, Percutaneous Approach (ICD-10-PCS; principal; 2023-12-18)
PROC: 5A09357 Assistance with Respiratory Ventilation, Less than 24 Consecutive Hours, Continuous Positive Airway Pressure (ICD-10-PCS; 2023-12-19)
PROC: 3E033XZ Introduction of Vasopressor into Peripheral Vein, Percutaneous Approach (ICD-10-PCS; 2023-12-19)
DX: T43.621A Poisoning by amphetamines, accidental (unintentional), initial encounter (principal); G92.8 Other toxic encephalopathy; J96.21 Acute and chronic respiratory failure with hypoxia; I50.23 Acute on chronic systolic (congestive) heart failure; K72.00 Acute and subacute hepatic failure without coma; J96.22 Acute and chronic respiratory failure with hypercapnia; E87.4 Mixed disorder of acid-base balance; N17.9 Acute kidney failure, unspecified; M62.82 Rhabdomyolysis; N12 Tubulo-interstitial nephritis, not specified as acute or chronic; D68.4 Acquired coagulation factor deficiency; Z66 Do not resuscitate; Z51.5 Encounter for palliative care; K76.82 Hepatic encephalopathy; E87.5 Hyperkalemia; E83.51 Hypocalcemia; E83.39 Other disorders of phosphorus metabolism; E80.6 Other disorders of bilirubin metabolism; K40.90 Unilateral inguinal hernia, without obstruction or gangrene, not specified as recurrent; I25.5 Ischemic cardiomyopathy; J44.9 Chronic obstructive pulmonary disease, unspecified; I48.0 Paroxysmal atrial fibrillation; F15.10 Other stimulant abuse, uncomplicated; R57.0 Cardiogenic shock; E11.649 Type 2 diabetes mellitus with hypoglycemia without coma; F10.10 Alcohol abuse, uncomplicated; F17.210 Nicotine dependence, cigarettes, uncomplicated; Z99.81 Dependence on supplemental oxygen; Z79.01 Long term (current) use of anticoagulants; Z79.811 Long term (current) use of aromatase inhibitors; Z79.899 Other long term (current) drug therapy; Z90.2 Acquired absence of lung [part of]; Z79.82 Long term (current) use of aspirin; Y90.0 Blood alcohol level of less than 20 mg/100 ml; I11.0 Hypertensive heart disease with heart failure; E11.51 Type 2 diabetes mellitus with diabetic peripheral angiopathy without gangrene; E78.5 Hyperlipidemia, unspecified; F15.120 Other stimulant abuse with intoxication, uncomplicated; Z79.51 Long term (current) use of inhaled steroids; Z98.890 Other specified postprocedural states; Z95.5 Presence of coronary angioplasty implant and graft; Z95.820 Peripheral vascular angioplasty status with implants and grafts
CPT/HCPCS: 36415; 36600; 51798; 71045; 74177; 80053; 80069; 80074; 82140; 82247; 82248; 82306; 82330; 82530; 82550; 82652; 82803; 82947; 83605; 83690; 83735; 83880; 83970; 84100; 84145; 84443; 84484; 85025; 85520; 85610; 85730; 87040; 93005; 93010; 94660; 94760; 96365-59; 96375; 99285-25; A9270; G0480; J0612; J1720; J2543; J3010; J7042; J7050; J7070; J7120; Q9967